=== PATIENT | female | born 2000 | race Caucasian/White ===

== ENCOUNTER 2019-11-28 11:09 | Outpatient (RCR) | payer BC, OTHER, SELFPAY ==
[2019-11-28 11:48] VITALS: BP 104/76; PULSE 116
== END 2020-01-19 09:14 | disposition home or self-care (01) ==
LOC: ANHOBOP 11:09
PROVIDERS: PCP Pediatrics; Visit Provider Obstetrics & Gynecology
DX: O36.8330 Maternal care for abnormalities of the fetal heart rate or rhythm, third trimester, not applicable or unspecified (principal); Z3A.30 30 weeks gestation of pregnancy
CPT/HCPCS: 59025

== ENCOUNTER 2019-11-28 12:07 | Outpatient (RCR) | payer BC, OTHER, SELFPAY ==
[2019-11-28 13:38] LABS: Hematocrit 35.9 % (37.0-47.0); Hemoglobin 12.2 g/dL (12.0-15.0)
[2019-11-28 13:52] LABS: Glucose 1 Hour PP 50gm Dose 93 mg/dL
[2019-11-28 14:32] LABS: HIV 1/2 Ab P24 Ag Result Negative (Negative)
[2019-11-29] MEDS: RHO(D) IMMUNE GLOBULIN 300 MCG SYRINGE IM (13:25)
== END 2020-02-26 23:59 | disposition home or self-care (01) ==
LOC: ANHLAB 12:07
PROVIDERS: PCP Pediatrics; Visit Provider Obstetrics & Gynecology
DX: Z29.13 Encounter for prophylactic Rho(D) immune globulin (principal); Z11.4 Encounter for screening for human immunodeficiency virus [HIV]; O36.0920 Maternal care for other rhesus isoimmunization, second trimester, not applicable or unspecified; Z3A.00 Weeks of gestation of pregnancy not specified
CPT/HCPCS: 36415; 82947; 85014; 85018; 85461; 86703; 90384; 96372; G0432; J2790

== ENCOUNTER 2019-12-30 17:07 | Outpatient (CLI) | payer BC, OTHER, SELFPAY ==
[2019-12-30 17:30] VITALS: BP 135/117; PULSE 114
[2019-12-30 17:46] VITALS: BP 128/74; PULSE 86
[2019-12-30 17:47] LABS: Basophils Percent Auto 0.2 % (0.2-1.2); Eosinophils Absolute Auto 0.1 K/mm3 (0-0.3); Eosinophils Percent Auto 0.8 % (0-4.4); Hematocrit 32.4 % (37.0-47.0); Immature Granulocyte Absolute 0.04 K/mm3 (0.00-0.031); Immature Granulocyte Percent A 0.3 % (0-0.5); Lymphocytes Percent Auto 21.1 % (18.3-44.2); Mean Corpuscular Hemoglobin 32.1 pg (26-34); Mean Corpuscular Volume 94.5 fl (80-100); Mean Platelet Volume 12.3 fl (7.4-10.4); Monocytes Percent Auto 7.7 % (2.6-8.5); Neutrophils Absolute Auto 8.6 K/mm3 (1.3-6.7); Neutrophils Percent Auto 69.9 % (45.5-73.1); Platelet Count Result 237 k/mm3 (150-375); Red Blood Count 3.43 M/mm3 (4.2-5.4); Red Cell Distribution Width 12.3 % (11.5-14.5); White Blood Count 12.3 K/mm3 (4.5-10.0)
[2019-12-30 17:53] LABS: Add Urine Microscopic? YES; Appearance Urine Cloudy (Clear); Bacteria Urine Trace /hpf; Bilirubin Urine Negative (Negative); Blood Urine Negative (Negative); Color Urine Yellow (Yellow); Glucose Urine UA Negative (Negative); Ketones Urine Negative (Negative); Leukocyte Esterase Ur Negative LEU/UL (NEGATIVE); Mucus Urine Rare /lpf; Nitrate Urine Negative (Negative); Protein Urine Negative (Negative); Specific Grav Ur 1.013 (1.001-1.035); Squamous Epithelial Cell Urine Many /hpf (Few); Urobilinogen Urine Negative mg/dL (<2.0); WBC Urine 0-3 /hpf (0-3)
[2019-12-30 18:00] LABS: Alanine Aminotransferase 9 U/L (4-35); Albumin Level 3.5 g/dL (3.5-5.1); Alkaline Phosphatase 155 U/L (38-126); Anion Gap 4 mmol/L (8-16); Aspartate Amino Transferase 20 U/L (14-36); Bilirubin,Total < 0.1 mg/dL (0.2-1.3); Blood Urea Nitrogen 9 mg/dL (7-17); Calcium 9.4 mg/dL (8.4-10.2); Carbon Dioxide 25 mmol/L (22-30); Chloride 104 mmol/L (98-107); Creatinine Urine 50.8 mg/dL; Estimated Glomerular Filt Rate > 60; Glucose 87 mg/dL (65-105); Potassium 3.9 mmol/L (3.4-5.0); Sodium 133 mmol/L (137-145); Total Protein Urine Random 11 mg/dL; Uric Acid 4.6 mg/dL (2.5-7.5)
[2019-12-30 18:01] VITALS: BP 132/78; PULSE 80
[2019-12-30 18:03] VITALS: BP 128/74; PULSE 90
--- NOTE | 2019-12-30 18:15 | PC.NURSE ---
1800- Spoke with Dr. Henry. RENNY Hernandez reviewed. Orders to discharge to home.
== END 2019-12-30 18:05 | disposition home or self-care (01) ==
LOC: ANHOBOP 17:13 → ANHOBPP 17:15
PROVIDERS: PCP Pediatrics; Visit Provider Obstetrics & Gynecology
DX: R51 Headache (principal); M79.89 Other specified soft tissue disorders; O26.899 Other specified pregnancy related conditions, unspecified trimester; Z3A.00 Weeks of gestation of pregnancy not specified
CPT/HCPCS: 36415; 59025; 80053; 81001; 82570; 84156; 84550; 85025; 87086; 87088; 99199

== ENCOUNTER 2020-01-14 16:10 | Inpatient (IN) | payer BC, OTHER, SELFPAY ==
[2020-01-14] VITALS (33 sets, daily range): BP systolic 133–162; BP diastolic 65–117; PULSE 73–106; TEMP 36.6; BMI 29.3
--- NOTE | ~2020-01-14 | US_ITS ---
EXAMINATION: US OB follow up w BPP EXAM DATE: 01/14/2020 15:57 INDICATION: Check amniotic fluid index, estimated weight, growth percent. 3rd trimester. TECHNIQUE: Pelvic obstetrical transabdominal sonogram was performed by a technologist. There are mu ltiple grayscale and Doppler images available for interpretation. There are no earlier studies of th is gestation for comparison. FINDINGS: There is a single fetus identified in vertex presentation with a heart rate of 139 beats pe r minute. The placenta is located in the posterior position. There is no sonographic evidence of ret roplacental hemorrhage identified. The amniotic fluid index is 15.7 centimeters, which is normal. BIOPHYSICAL PROFILE (performed by the technologist) breathing (30 sec sustained breathing in 30 minutes): 2 out of 2 movement (3 gross body movements in 30 minutes): 2 out of 2 tone (one episode of wqtwhdz-zxioeptup-tzsjjmg limb movement): 2 out of 2 Amniotic fluid pocket (2 cm): 2 out of 2 Total score: 8 out of 8 BIOMETRIC DATA: Biparietal diameter (BPD): 9.0cm ----------------> 36 weeks 3 days. Head circumference (HC): 32.7 cm ----------------> 37 weeks 0 days. Abdominal circumference (AC): 33.1 cm ----------> 37 weeks 0 days. Femur length (FL): 7.2 cm --------------------------> 37 weeks 0 days. These measurements are concordant. HC/AC ratio is 0.99 (The 5th -- 95th percentile range is 0.92-1.05. Estimated weight is 3079 g +/- 462 g. This is the 46th percentile when the currently reported clinical gestation age 37 weeks 3 days, clinical estimated date of delivery (JOHN-OPE) 02/01/2020 is u sed. estimated gestational age based on measurements from this exam is 36 weeks 6 days, with an estimated date of delivery (JOHN-AUA) 02/05/2020. IMPRESSION: 1. Single fetus in vertex presentation with heart rate 139 beats per minute. 2. Estimated weight of 3079 grams, 46th percentile using the currently reported clinical gesta tion age of 37 weeks 3 days, JOHN(OPE) 02/05/2020. 3. Normal MELI and BPS. Reviewed, dictated and finalized at location B. IMPRESSION: 1. Single fetus in vertex presentation with heart rate 139 beats per minute. 2. Estimated weight of 3079 grams, 46th percentile using the currently r eported clinical gestation age of 37 weeks 3 days, JOHN(OPE) 02/05/2020. 3. Normal MELI and BPS.
[2020-01-14 14:06] LABS: Basophils Absolute Auto 0.1 K/mm3 (0.0-0.1); Basophils Percent Auto 0.5 % (0.2-1.2); Eosinophils Absolute Auto 0.3 K/mm3 (0-0.3); Eosinophils Percent Auto 2.3 % (0-4.4); Hematocrit 32.3 % (37.0-47.0); Immature Granulocyte Absolute 0.07 K/mm3 (0.00-0.031); Immature Granulocyte Percent A 0.5 % (0-0.5); Lymphocytes Absolute Auto 2.25 K/mm3 (0.9-3.2); Lymphocytes Percent Auto 16.9 % (18.3-44.2); Mean Corpuscular HGB Conc 34.1 g/dl (32-36); Mean Corpuscular Hemoglobin 32.2 pg (26-34); Mean Corpuscular Volume 94.4 fl (80-100); Mean Platelet Volume 12.5 fl (7.4-10.4); Monocytes Absolute Auto 0.8 K/mm3 (0.1-0.6); Monocytes Percent Auto 5.9 % (2.6-8.5); Neutrophils Absolute Auto 9.9 K/mm3 (1.3-6.7); Neutrophils Percent Auto 73.9 % (45.5-73.1); Platelet Count Result 185 k/mm3 (150-375); Red Blood Count 3.42 M/mm3 (4.2-5.4); Red Cell Distribution Width 12.7 % (11.5-14.5); White Blood Count 13.3 K/mm3 (4.5-10.0)
[2020-01-14 14:15] LABS: Creatinine Urine 158.2 mg/dL
[2020-01-14 14:18] LABS: Add Urine Microscopic? YES; Appearance Urine Cloudy (Clear); Bacteria Urine Trace /hpf; Bilirubin Urine Negative (Negative); Blood Urine 3+ (Negative); Color Urine Yellow (Yellow); Glucose Urine UA Negative (Negative); Ketones Urine Negative (Negative); Leukocyte Esterase Ur Trace LEU/UL (NEGATIVE); Mucus Urine Rare /lpf; Nitrate Urine Negative (Negative); Protein Urine 3+ mg/dL (Negative); Specific Grav Ur 1.019 (1.001-1.035); Squamous Epithelial Cell Urine Many /hpf (Few); Transitional Epi Cells Urine Rare /hpf (None Seen); Urobilinogen Urine Negative mg/dL (<2.0); WBC Urine 21-30 /hpf (0-3)
[2020-01-14 14:20] LABS: Alanine Aminotransferase 17 U/L (4-35); Albumin Level 3.3 g/dL (3.5-5.1); Alkaline Phosphatase 207 U/L (38-126); Anion Gap 5 mmol/L (8-16); Aspartate Amino Transferase 26 U/L (14-36); Bilirubin,Total 0.4 mg/dL (0.2-1.3); Blood Urea Nitrogen 9 mg/dL (7-17); Calcium 8.8 mg/dL (8.4-10.2); Carbon Dioxide 23 mmol/L (22-30); Chloride 106 mmol/L (98-107); Estimated Glomerular Filt Rate > 60; Glucose 79 mg/dL (65-105); Potassium 4.1 mmol/L (3.4-5.0); Sodium 134 mmol/L (137-145); Uric Acid 5.3 mg/dL (2.5-7.5)
[2020-01-14 14:23] LABS: Total Protein Urine Random 343 mg/dL
--- NOTE | 2020-01-14 14:59 | PC.NURSE ---
1439--Reported labs to Dr. Henry
--- NOTE | 2020-01-14 16:56 | PC.NURSE ---
1520--US at bedside.
--- NOTE | 2020-01-14 16:57 | PC.NURSE ---
1610--US results and labs reported to Dr. Henry. MIL orders given. Will transfer pt to L&D for induction.
--- NOTE | 2020-01-14 18:53 | LDADM ---
This patient, Augustina Dumont, was admitted to Labor/Delivery/Recovery 105 on 01/14/20 at 16:10. Plans for labor, pain management and were discussed with patient. Patient/family oriented to hospital policies and general routines including ID bracelet, bed and alarms, visiting hours, pain management, procedures, bathroom and other care routines, personal items, smoking policy, room service/diet and guest tray routines, infant security routines, and visiting hours. Patient/Family are encouraged to report perceived risks to care and to ask questions if they do not understand what they are told or what they should do. See OBIX for further documentation.
[2020-01-14 19:44] LABS: HIV 1/2 Ab P24 Ag Result Negative (Negative)
[2020-01-14 19:50] LABS: Amphetamine Screen Urine Negative (Negative); Barbiturate Screen Urine Negative (Negative); Benzodiazepines Screen Urine Negative (Negative); Cannabinoid Screen Urine Positive (Negative); Cocaine Screen Urine Negative (Negative); Methadone Screen Urine Negative (Negative); Opiate Screen Urine Negative (Negative); Phencyclidine Screen Urine Negative (Negative)
[2020-01-14] MEDS: valACYclovir HCL 500 MG TABLET PO (22:17)
[2020-01-15] VITALS (126 sets, daily range): BP systolic 108–167; BP diastolic 69–132; PULSE 67–140; RESP 15–16; TEMP 36.6–38.4; O2SAT 96–100
[2020-01-15] MEDS: LACTATED RINGERS 1,000 ML 125 ML IV CONT ×2 (00:09→09:12)
[2020-01-15] MEDS: OXYTOCIN 30 UNITS/NS 500 ML 30 UNITS/500 ML BAG IV CONT (00:09)
--- NOTE | 2020-01-15 07:03 | WPDANESEPP ---
Anes - Eval Pre Procedure Procedure: labor epidural Date/Time: 01/15/20 07:03 Preop Diagnosis: labor pain Pre Op Diagnosis: Induction of Labor Patient Data Age: 19 Gender: F Height: 5 ft 4 in Weight: 77.5 kg Last Vital Signs Temp 36.9 C 01/15/20 03:30 Pulse 99 01/15/20 07:01 BP 150/94 H 01/15/20 07:01 Allergies Allergy/AdvReac Type Severity Reaction Status Date / Time No Known Allergies Allergy Verified 01/14/20 19:20 Home Medications Medication Instructions Recorded Confirmed Type vit no.[id number] 1 tablet PO DAILY 12/30/19 01/14/20 History [Classic ] valacyclovir 500 mg PO DAILY 12/30/19 01/14/20 History Laboratory Tests 01/14/20 01/14/20 01/14/20 13:59 13:59 13:59 WBC 13.3 K/mm3 H K/mm3 (4.5-10.0) RBC 3.42 M/mm3 L M/mm3 (4.2-5.4) Hgb 11.0 g/dL L g/dL (12.0-15.0) Hct 32.3 % L % (37.0-47.0) MCV 94.4 fl fl (80-100) MCH 32.2 pg pg (26-34) MCHC 34.1 g/dl g/dl (32-36) RDW 12.7 % % (11.5-14.5) Plt Count 185 k/mm3 k/mm3 (150-375) MPV 12.5 fl H fl (7.4-10.4) Immature Gran % (Auto) 0.5 % % (0-0.5) Neut % (Auto) 73.9 % H % (45.5-73.1) Lymph % (Auto) 16.9 % L % (18.3-44.2) Towns % (Auto) 5.9 % % (2.6-8.5) Eos % (Auto) 2.3 % % (0-4.4) Baso % (Auto) 0.5 % % (0.2-1.2) Lymph # (Auto) 2.25 K/mm3 K/mm3 (0.9-3.2) Towns # (Auto) 0.8 K/mm3 H K/mm3 (0.1-0.6) Eos # (Auto) 0.3 K/mm3 K/mm3 (0-0.3) Baso # (Auto) 0.1 K/mm3 K/mm3 (0.0-0.1) Abs Immat Gran (auto) 0.07 K/mm3 H K/mm3 (0.00-0.031) Absolute Neuts (auto) 9.9 K/mm3 H K/mm3 (1.3-6.7) Absolute Nucleated RBC 0.0 K/mm3 K/mm3 (0.0-0.012) Nucleated RBC % 0.0 % % (0.0-0.2) Sodium Potassium Chloride Carbon Dioxide Anion Gap BUN Creatinine Estim Creat Clear Calc Estimated GFR Glucose Uric Acid Calcium Total Bilirubin AST ALT Alkaline Phosphatase Total Protein Albumin Urine Color Yellow (Yellow) Urine Appearance Cloudy H (Clear) Urine pH 6.0 (5.0-9.0) Ur Specific [place] 1.019 (1.001-1.035) Urine Protein 3+ mg/dL H mg/dL (Negative) Urine Glucose (UA) Negative mg/dL mg/dL (Negative) Urine Ketones Negative mg/dL mg/dL (Negative) Ur Blood (Man) 3+ H (Negative) Urine Nitrate Negative (Negative) Urine Bilirubin Negative (Negative) Urine Urobilinogen Negative mg/dL mg/dL (<2.0) Ur Leukocyte Esterase Trace MARIA ELENA/UL H MARIA ELENA/UL (NEGATIVE) Urine RBC 6-10 /hpf H /hpf (0-2) Urine WBC 21-30 /hpf H /hpf (0-3) Ur Squamous Epith Cells Many /hpf H /hpf (Few) Ur Transition Epith Cell Rare /hpf /hpf (None Seen) Urine Bacteria Trace /hpf /hpf Urine Mucus Rare /lpf /lpf U Random Total Protein 343 mg/dL mg/dL Urine Creatinine 158.2 mg/dL mg/dL Urine Opiates Screen Urine Methadone Screen Ur Barbiturates Screen Ur Phencyclidine Scrn Ur Amphetamine Screen U Benzodiazepines Scrn Urine Cocaine Screen U Cannabinoids Screen RPR HIV 1&2 Ab/P24 Ag 4thGn Blood Type Antibody Screen Antibody Identification Antigen Identification VIKKI, IgG Interpret VIKKI, Poly Interpret VIKKI, Complement Interp 01/14/20 01/14/20 01/14/20 13:59 13:59
[2020-01-15] MEDS: ONDANSETRON INJ 4 MG/2 ML VIAL IV PUSH (08:00)
[2020-01-15] MEDS: valACYclovir HCL 500 MG TABLET PO ×2 (09:12→23:00)
[2020-01-15 09:37] LABS: Rapid Plasma Reagin Non-Reactive (NonReactive)
[2020-01-15] MEDS: FAMOTIDINE 20 MG/2 ML VIAL IV PUSH (11:35)
--- NOTE | 2020-01-15 12:33 | P.PCNOB_ITS ---
OB - Delivery Note Procedure events: Induced HTN Route of delivery: Episiotomy description: None Laceration description: None Specimen: Yes Estimated blood loss (mL): 300 Anesthesia type: Epidural Disposition: floor Narrative: Patient prepped and draped usual manner for this procedure. Maternal expulsive efforts delivered vertex over intact perineum and the rest of baby was still without difficulty as well. Cord is clamped and cut and placenta delivered spontaneously. Cervix vagina vulva were inspected with no significant lacerations or tears. Uterus was well contracted with minimal bleeding. This point seizure was considered terminated with immediate condition of both mother and baby excellent [place] Baby Weeks of gestation at delivery: 37 gender: Female Weight (pounds): 6 Weight (ounces): 1 score one minute: 8 score five minutes: 9
--- NOTE | 2020-01-15 12:44 | WPDHPUPDATE1 ---
History and Physical Update Update Date/Time: 01/15/20 12:44 History and Physical has been reviewed, including an updated exam of the patient. There are NO changes in the patient's condition. Risks, benefits, and alternatives have been discussed and questions answered. Patient agrees to proceed with procedure.
--- NOTE | 2020-01-15 12:44 | WPDOBADMIT ---
Obstetrics - Admit Note Admission Note: record reviewed. No pertinent additions to the history and/or any subsequent changes in the physical findings that are not consistent with the expected course of the were found. Additions to the history and/or subsequent changes in the physical findings follow. None.
[2020-01-15] MEDS: WITCH HAZEL 40 PADS 1 PAD TOPICAL ×2 (13:32→14:28)
[2020-01-15] MEDS: BENZOCAINE 20% AER SPR (*SP) 56 GM CAN 1 SPRAY TOPICAL ×2 (13:32→14:28)
[2020-01-15] MEDS: LABETALOL HCL 100 MG TABLET PO ×2 (13:32→23:00)
[2020-01-15] MEDS: IBUPROFEN 600 MG TABLET PO ×2 (13:32→19:40)
[2020-01-15] MEDS: ceFAZolin 2 GM/D5W 50 ML 2 GM/50 ML BAG IVPB (13:52)
[2020-01-15] MEDS: OXYTOCIN 30 UNITS/NS 500 ML 30 UNITS/500 ML BAG 125 UNITS IV CONT (14:28)
--- NOTE | 2020-01-15 19:49 | PC.NURSE ---
1530 Pt admitted to room 285 per wheelchair from labor and delivery after vaginal delivery of viable female today q at [address] Henry. Mother is a and is desiring to breast feed, but is bottle feeding for now pending Lab test results. FOB present. Couple oriented to room, staffing and procedures. Admission folder reviewed with them. Pt's VSS and assessment WNL. pt is in respiratory isolation pending lab test results.
[2020-01-16 05:56] LABS: Hematocrit 24.2 % (37.0-47.0); Hemoglobin 8.1 g/dL (12.0-15.0)
--- NOTE | 2020-01-16 07:42 | PM.OBDSVD ---
DS: Admitting Diagnosis Admitting Diagnosis Admitting Diagnosis: Induction of Labor OB - DS: Summary OB Procedures : None OB Procedures Intrapartum: Spontaneous Vag Delivery OB Procedures: : None Time Spent with Patient Time attestation: Total time spent providing and/or coordinating discharge services: DS: Data Data Completed and Pending Pending studies at discharge: Pending at discharge 01/15/20 12:27 Surgical [PTH] Routine Labs on day of discharge: Labs from last 24 hours 01/16/20 01/15/20 01/14/20 04:40 14:20 18:45 Hgb 8.1 L Hct 24.2 L RPR Non-reactive SARS-CoV-2 RNA (RT-PCR) Pending Discharge Plan Discharge Discharging Clinician: Zay Henry Patient Disposition: Home, Self-Care Activity: as tolerated Diet: as tolerated Patient Instructions: How to Stop Smoking (DC), Antibiotic Form Stand Alone Forms: General Discharge Information Follow-up/Referrals: Zay Henry MD [Physician] - 1 Week Discharge Medications: New ibuprofen 600 mg Tablet 600 mg PO Q6H PRN (Reason: Cramping) Qty: 30 RF: 0 sulfamethoxazole-trimethoprim 800-160 mg Tablet 1 tab PO Q12HR Qty: 14 RF: 0 labetalol 100 mg Tablet 100 mg PO Q12HR Qty: 60 RF: 0 Continued Classic 28 mg iron- 800 mcg Tablet 1 tablet PO DAILY RF: 0 Discontinued valacyclovir 500 mg Tablet 500 mg PO DAILY RF: 0 Date of admission: 01/14/20 16:10 Primary Care Provider: Chriss Washington Admitting Provider: Zay Herny Attending physician on admission: Zay Henry Condition: Stable
[2020-01-16 08:45] VITALS: BP 135/70; PULSE 80; RESP 16; TEMP 37.4
[2020-01-16 09:00] VITALS: PULSE 80
[2020-01-16] MEDS: LABETALOL HCL 100 MG TABLET PO (09:00)
[2020-01-16] MEDS: IBUPROFEN 600 MG TABLET PO ×2 (09:00→17:58)
[2020-01-16] MEDS: POLYSACCHARIDE IRON COMPLEX 150 MG CAPSULE PO ×2 (09:00→17:57)
--- NOTE | 2020-01-16 09:23 | WPDANLDPN2 ---
Anes-Prog Note L&D Date/Time: 01/16/20 09:23 Comfortable throughout: labor and delivery Neuraxial method: epidural Epidural/Spinal procedure site: clean & non-tender Neuro status: Neuro function grossly intact. Cardiovascular status: normal Respiratory status: normal Airway patency: baseline Mental status: baseline Post-Op hydration status: normal Vital Signs: Last Vital Signs Temp 37.2 C 01/15/20 19:20 Pulse 86 01/15/20 23:00 Resp 15 01/15/20 19:20 BP 138/90 01/15/20 19:20 Pulse Ox 98 01/15/20 11:26 Pain score (VAS): 1 Post-procedural complaints: none Patient feedback: Patient satisfied with anesthetic care.
--- NOTE | 2020-01-16 13:24 | PCCCNOTE ---
Addendum entered by TERRANCE [place] 01/16/20 16:25: Received call from Shima Davis [facility] credit investigator that pt. and baby are approved to discharge. Shima will follow up with pt. and baby this evening at there home. Pt. and nursing aware. Original Note: Care Coordination Consult Met with pt. today regarding concerns of maternal drug use. Pt. reports this is her first child. FOB is Roberto and this is his 3rd child. Pt. reports that she has supports including Roberto, her mother, and other family members. Pt. has all necessary belongings at home including a crib, car seat, clothing, diapers and bottles. Pt. was hoping to breast feed however has transitioned to bottle feeding. Pt. is current with [facility] services and will add the baby at discharge. resources was provided to pt. CC spoke with pt. regarding drug use, pt. is aware she tested positive for THC. Baby girl, Lolita urinalysis was completed which is negative for all substances, meconium is pending. 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 Pt. reports this was recreational. Pt. denies that she uses any other substances currently other than marijuana. Pt. reports Roberto does not use any substances. [facility] was contacted and a report was generated with [facility] family support worker Shima Valencia investigating. Pt. is aware of investigation and states Roberto is currently completing a urinalysis test for [facility]. CC contacted Shima Valencia @ [phone] [facility]. CC will fax results of meconium test once available to [phone]. Awaiting determination from [facility].
[2020-01-16] MEDS: MULTIVIT/MIN/PREN/FOL AC/IRON TABLET 1 TAB PO (13:35)
[2020-01-16] MEDS: valACYclovir HCL 500 MG TABLET PO (13:35)
[2020-01-16 14:17] LABS: SARS-CoV-2 RNA PCR Negative
[2020-01-16] MEDS: DOCUSATE SODIUM 100 MG CAPSULE PO (17:57)
[2020-01-16] MEDS: MEASLES,MUMPS,RUBELLA VACCINE 0.5 ML VIAL SUB-Q (18:01)
[2020-01-16] MEDS: TETANUS,DIPHTHERIA,AC PERTUSSIS ADULT (0.5 ML) BOOSTRIX IM (18:02)
--- NOTE | 2020-01-16 18:55 | PC.NURSE ---
Patient instructed on viewing the discharge video Mother & Baby Care, The First Two Weeks . Patient was given the opportunity and encouraged to ask questions. Patient verbalized understanding of information shared and has been given the mother/baby guide for home reference.
[2020-01-19 08:34] VITALS: BP 129/88; RESP 85; O2SAT 99
== END 2020-01-16 19:35 | disposition home or self-care (01) | DRG 807 ==
LOC: ANHOBOP 17:13 → ANHOBPP 17:13 → ANHLDR 18:30 → ANHOB2 01-15 15:45
PROVIDERS: Admitting Provider Obstetrics & Gynecology; PCP Pediatrics; Visit Provider Obstetrics & Gynecology
DX: O13.4 Gestational [pregnancy-induced] hypertension without significant proteinuria, complicating childbirth (principal); Z37.0 Single live birth; O99.334 Smoking (tobacco) complicating childbirth; F17.200 Nicotine dependence, unspecified, uncomplicated; Z3A.37 37 weeks gestation of pregnancy; Z23 Encounter for immunization
CPT/HCPCS: 36415; 59025; 76816; 76819; 80053; 80307; 81001; 82570; 84156; 84550; 85014; 85018; 85025; 86592; 86703; 86850; 86880; 86900; 86901; 86902; 87086; 87088; 87635; 88307; 90471; 90686; 90710; 90715; A9270; C9803; G0008; G0432; J0690; J2405; J2590; J2795; J7120; U0003

== ENCOUNTER 2021-08-15 09:46 | Outpatient (CLI) | payer BC, OTHER, SELFPAY ==
[2021-08-15 10:11] LABS: Basophils Percent Auto 0.3 % (0.2-1.2); Eosinophils Absolute Auto 0.1 K/mm3 (0-0.3); Eosinophils Percent Auto 1.1 % (0-4.4); Hematocrit 40.6 % (37.0-47.0); Hemoglobin 13.8 g/dL (12.0-15.0); Immature Granulocyte Absolute 0.03 K/mm3 (0.00-0.031); Immature Granulocyte Percent A 0.3 % (0-0.5); Lymphocytes Absolute Auto 3.25 K/mm3 (0.9-3.2); Lymphocytes Percent Auto 27.7 % (18.3-44.2); Mean Corpuscular Hemoglobin 30.8 pg (26-34); Mean Corpuscular Volume 90.6 fl (80-100); Mean Platelet Volume 10.4 fl (7.4-10.4); Monocytes Absolute Auto 0.5 K/mm3 (0.1-0.6); Monocytes Percent Auto 4.2 % (2.6-8.5); Neutrophils Absolute Auto 7.8 K/mm3 (1.3-6.7); Neutrophils Percent Auto 66.4 % (45.5-73.1); Platelet Count Result 270 k/mm3 (150-375); Red Blood Count 4.48 M/mm3 (4.2-5.4); Red Cell Distribution Width 12.1 % (11.5-14.5); White Blood Count 11.7 K/mm3 (4.5-10.0)
[2021-08-15 11:07] LABS: HIV 1/2 Ab P24 Ag Result Negative (Negative)
[2021-08-15 11:13] LABS: Hepatitis B Surface Antigen Negative (Negative); Rubella IgG Antibody 8.5 IU/ML
[2021-08-16 11:22] LABS: Rapid Plasma Reagin Non-Reactive (NonReactive)
[2021-08-17 08:02] LABS: CMV IgG Antibody <0.60 U/mL (<0.60)
== END 2021-08-15 09:47 | disposition home or self-care (01) ==
LOC: ANHLAB 09:50
PROVIDERS: Visit Provider Obstetrics & Gynecology
DX: N94.89 Other specified conditions associated with female genital organs and menstrual cycle (principal)
CPT/HCPCS: 36415; 84702; 85025; 86592; 86644; 86703; 86747; 86762; 86787; 86850; 86900; 86901; 87086; 87340; G0432

== ENCOUNTER 2021-12-12 13:02 | Outpatient (CLI) | payer BC, OTHER, SELFPAY ==
[2021-12-12 13:37] VITALS: BP 116/68; PULSE 79
[2021-12-12 13:46] VITALS: BP 130/89; PULSE 97
[2021-12-12 14:01] VITALS: BP 117/63; PULSE 87
--- NOTE | 2021-12-12 14:15 | PC.NURSE ---
Pt remains on unit to do 1hr glucose test.
[2021-12-12 15:38] LABS: Basophils Percent Auto 0.2 % (0.2-1.2); Eosinophils Absolute Auto 0.1 K/mm3 (0-0.3); Eosinophils Percent Auto 0.5 % (0-4.4); Hematocrit 34.7 % (37.0-47.0); Hemoglobin 11.6 g/dL (12.0-15.0); Immature Granulocyte Absolute 0.05 K/mm3 (0.00-0.031); Immature Granulocyte Percent A 0.4 % (0-0.5); Lymphocytes Absolute Auto 2.42 K/mm3 (0.9-3.2); Lymphocytes Percent Auto 18.7 % (18.3-44.2); Mean Corpuscular HGB Conc 33.4 g/dl (32-36); Mean Corpuscular Hemoglobin 31.9 pg (26-34); Mean Corpuscular Volume 95.3 fl (80-100); Mean Platelet Volume 10.5 fl (7.4-10.4); Monocytes Absolute Auto 0.7 K/mm3 (0.1-0.6); Monocytes Percent Auto 5.1 % (2.6-8.5); Neutrophils Absolute Auto 9.7 K/mm3 (1.3-6.7); Neutrophils Percent Auto 75.1 % (45.5-73.1); Platelet Count Result 265 k/mm3 (150-375); Red Blood Count 3.64 M/mm3 (4.2-5.4); Red Cell Distribution Width 12.9 % (11.5-14.5)
[2021-12-12 15:54] LABS: Glucose 1 Hour PP 50gm Dose 123 mg/dL
[2021-12-12 16:33] LABS: HIV 1/2 Ab P24 Ag Result Negative (Negative)
== END 2021-12-12 15:30 | disposition home or self-care (01) ==
LOC: ANHOBOP 13:06 → ANHOBPP 13:07
PROVIDERS: Visit Provider Obstetrics & Gynecology
DX: Z34.90 Encounter for supervision of normal pregnancy, unspecified, unspecified trimester (principal); Z3A.00 Weeks of gestation of pregnancy not specified
CPT/HCPCS: 36415; 59025; 82947; 84112; 85025; 85461; 86703; 90384; 99199; G0432; J2790

== ENCOUNTER 2021-12-13 12:19 | Outpatient (CLI) | payer BC, OTHER, SELFPAY ==
[2021-12-13] MEDS: RHO(D) IMMUNE GLOBULIN 300 MCG/2 ML SYRINGE IM (12:58)
== END 2021-12-13 12:20 | disposition home or self-care (01) ==
LOC: ANHOBOP 12:37
PROVIDERS: Visit Provider Obstetrics & Gynecology
DX: O36.0990 Maternal care for other rhesus isoimmunization, unspecified trimester, not applicable or unspecified (principal); Z3A.00 Weeks of gestation of pregnancy not specified
CPT/HCPCS: 90384; 96372; J2790

== ENCOUNTER 2022-01-16 14:34 | Outpatient (CLI) | payer BC, OTHER, SELFPAY | END 2022-01-16 14:35 | disposition home or self-care (01) | LOC: ANHLAB 14:37 | PROVIDERS: Visit Provider Obstetrics & Gynecology | DX: R19.5 Other fecal abnormalities (principal) | CPT/HCPCS: 87177; 87209 ==

== ENCOUNTER 2022-02-14 11:23 | Outpatient (RCR) | payer BC, OTHER, SELFPAY ==
[2022-01-31 12:21] VITALS: BP 115/67; PULSE 92
[2022-02-03 12:09] VITALS: BP 116/74; PULSE 97
[2022-02-07 12:30] VITALS: BP 120/77; PULSE 111
[2022-02-10 09:56] VITALS: BP 122/76; PULSE 106
--- NOTE | ~2022-02-14 | US_ITS ---
EXAMINATION: US OB BPP wo non-stress DATE: 02/14/2022 13:08 CDT INDICATION: IUGR. TECHNIQUE: Real-time transabdominal obstetric ultrasound. FINDINGS: Comparison to ultrasound dated 02/13/2022 There is a single living fetus. heart rate 137 BPM. cardiac activity and movement is noted with a heart rate of 137 beats per minute. Biophysical profile: breathin of 2 movement: 2 of 2 tone: 2 of 2 Amniotic flud pocket: 2 of 2 Total score: 8 of 8 IMPRESSION: 1. Single living intrauterine with heart rate of 137 BPM. 2: Total biophysical profile score of 8/8. Reviewed, dictated and finalized at location B.
--- NOTE | ~2022-02-14 | US_ITS ---
EXAMINATION: US OB BPP wo non-stress DATE: 01/31/2022 12:54 INDICATION: IUGR during third trimester TECHNIQUE: Real-time pelvic ultrasound was performed. The interpreting radiologist was not present fo r the study. COMPARISON: None. FINDINGS: There is a single living fetus in vertex presentation. The placenta is anterior. heart rate is 185 beats per minute (bpm). Biophysical profile performed by the technologist: breathing (30 sec sustained breathing in 30 minutes): 2 out of 2 movement (3 gross body movements in 30 minutes): 2 out of 2 tone (one episode of stqtahg-twimaarub-hostzza limb movement): 2 out of 2 Amniotic fluid pocket (2 cm): 2 out of 2 Total score: 8 out of 8 IMPRESSION: 1. Single living fetus in vertex presentation. 2. Biophysical profile 8 out of 8. Reviewed, dictated and finalized at location A.
--- NOTE | ~2022-02-14 | US_ITS ---
EXAMINATION: US OB BPP wo non-stress DATE: 02/07/2022 12:37 INDICATION: Intrauterine growth restriction. Third trimester. TECHNIQUE: Real-time pelvic ultrasound was performed. COMPARISON: Ultrasound 01/31/2022 FINDINGS: There is a single living fetus in vertex presentation. The placenta is anterior. heart rate is 143 beats per minute (bpm). The amniotic fluid volume is subjectively normal. Biophysical profile performed by the technologist: breathing (30 sec sustained breathing in 30 minutes): 2 out of 2 movement (3 gross body movements in 30 minutes): 2 out of 2 tone (one episode of iloqtiz-cojtmuomf-ldhmquh limb movement): 2 out of 2 Amniotic fluid pocket (2 cm): 2 out of 2 Total score: 8 out of 8 IMPRESSION: 1. Single living fetus in vertex presentation. 2. Biophysical profile 8 out of 8. Reviewed, dictated and finalized at location B.
[2022-02-14 13:09] VITALS: BP 131/75; PULSE 103
== END 2022-03-24 07:40 | disposition home or self-care (01) ==
LOC: ANHOBOP 11:23
PROVIDERS: Visit Provider Obstetrics & Gynecology
DX: O36.5930 Maternal care for other known or suspected poor fetal growth, third trimester, not applicable or unspecified (principal); Z3A.36 36 weeks gestation of pregnancy; Z3A.37 37 weeks gestation of pregnancy
CPT/HCPCS: 59025; 76819

== ENCOUNTER 2022-02-16 04:41 | Inpatient (IN) | payer BC, OTHER, SELFPAY ==
[2022-02-16] VITALS (59 sets, daily range): BP systolic 110–144; BP diastolic 58–104; PULSE 62–154; RESP 16; TEMP 36.3–36.8; O2SAT 97–100; BMI 32.7
--- OUTSIDE RECORDS SUMMARY | 2022-02-16 04:45 | XMS_ITS ---
:1999 Author Care Team Providers Name Role Phone Zay Henry Primary Care Provider Unavailable Allergies Code Code System Name Reaction Severity Status Onset NKDA ? Medications Name Status Start Date Stop Date ? ? acetaminophen 300 mg-codeine 30 mg tablet Completed ? 09/02/2019 amoxicillin 875 mg-potassium clavulanate 125 mg tablet Active ? Not available TAKE 1 TABLET BY MOUTH EVERY 12 HOURS FOR 10 DAYS azithromycin 250 mg tablet Completed ? 05/20 TK 4 TS PO ONE TIME azithromycin 500 mg tablet Completed ? 09/01 [place] Fe 1.5/30 (28) 1.5 mg-30 mcg (21)/75 mg (7) tablet Compl eted ? 10/19/2020 Take 1 tablet every day by oral route. ceftriaxone 250 mg solution for injection Completed ? 09/02/2019 fluconazole 150 mg tablet Active ? Not av ailable TAKE 1 TABLET BY MOUTH 1 TIME. REPEAT D OSE IN 3 DAYS IF SYMPTOMS ARE STILL PRESENT fluconazole 200 mg tablet Completed ? 2019 fluticasone propionate 50 mcg/actuation nasal Completed ? 10/19/2020 spray,suspension ibuprofen 600 mg tablet Completed ? 10/20/19 21 TK 1 T PO Q 6 H PRF CRAMPING labetalol 100 mg tablet Completed ? 10/20/19 21 TK 1 T PO Q 12 H Lexapro 10 mg tablet Completed ? 10/19/2020 Take 1/2 tablet for 7 days, then take O NE tablet dailyNo alcohol, driving or with sedating medicationsNotify if any change in mood or behavior metronidazole 0.75 % (37.5 mg/5 gram) vaginal Completed ? 09/02/2019 gel metronidazole 500 mg tablet Completed ? 09/22 Miya 0.25 mg-35 mcg tablet Active ? Not a
--- OUTSIDE RECORDS SUMMARY | 2022-02-16 04:45 | XMS_ITS ---
:1999 Author Allergies Code Code System Name Reaction Severity Status Onset NKDA ? Medications Name Status Start Date Stop Date ? ? amoxicillin 875 mg-potassium clavulanate 125 mg tablet Completed ? 06/14/2020 TAKE 1 TABLET BY MOUTH EVERY 12 HOURS FOR 10 DAYS azithromycin 250 mg tablet Completed ? 05/20 TK 4 TS PO ONE TIME [place] Fe 1.5/30 (28) 1.5 mg-30 mcg (21)/75 mg (7) Active ? Not available tablet escitalopram 10 mg tablet Active ? Not av ailable fluconazole 150 mg tablet Completed ? 2020 TAKE 1 TABLET BY MOUTH 1 TIME. REPEAT D OSE IN 3 DAYS IF SYMPTOMS ARE STILL PRESENT fluticasone propionate 50 mcg/actuation nasal Active ? Not available spray,suspension ibuprofen 600 mg tablet Active ? Not avai lable TK 1 T PO Q 6 H PRF CRAMPING labetalol 100 mg tablet Active ? Not avai lable TK 1 T PO Q 12 H metronidazole 500 mg tablet Active ? Not available TK 1 T PO BID Miya 0.25 mg-35 mcg tablet Active ? Not a vailable TAKE 1 TABLET BY MOUTH EVERY DAY sulfamethoxazole 800 mg-trimethoprim 160 mg tablet Completed ? 04/02/2020 TK 1 T PO Q 12 H valacyclovir 500 mg tablet Active ? Not a vailable Zyrtec-D 5 mg-120 mg tablet,extended release Active ? Not available 1 Q 12 H Problems Name Status Onset Date Source ? Verruca Plantaris Active 04/07/2020 ? Procedures None recorded. Results Lab Results None recorded. Past Encounte
--- OUTSIDE RECORDS SUMMARY | 2022-02-16 04:45 | XMS_ITS ---
:1999 Author Care Team Providers Name Role Phone ENDER CARRASCO MD Primary Care Provider [phone] Allergies Code Code System Name Reaction Severity Status Onset NKDA ? Medications Name Status Start Date Stop Date ? ? acetaminophen 300 mg-codeine 30 mg tablet Completed ? 09/02/2019 amoxicillin 875 mg-potassium clavulanate 125 mg tablet Active ? Not available TAKE 1 TABLET BY MOUTH EVERY 12 HOURS FOR 10 DAYS azithromycin 250 mg tablet Completed ? 09/01 TK 4 TS PO ONE TIME azithromycin 500 mg tablet Completed ? 09/01 [place] Fe 1.5/30 (28) 1.5 mg-30 mcg (21)/75 mg (7) Completed ? 09/02/2019 tablet ceftriaxone 250 mg solution for injection Completed ? 09/02/2019 escitalopram 10 mg tablet Active ? Not av ailable fluconazole 150 mg tablet Active ? Not av ailable TAKE 1 TABLET BY MOUTH 1 TIME. REPEAT D OSE IN 3 DAYS IF SYMPTOMS ARE STILL PRESENT fluconazole 200 mg tablet Completed ? 2019 fluticasone propionate 50 mcg/actuation nasal Active ? Not available spray,suspension ibuprofen 600 mg tablet Completed ? 02/09/20 labetalol 100 mg tablet Completed ? 02/09/20 metronidazole 0.75 % (37.5 mg/5 gram) vaginal gel Completed ? 09/02/2019 metronidazole 500 mg tablet Completed ? 08/21 Miya 0.25 mg-35 mcg tablet Active ? Not a vailable TAKE 1 TABLET BY MOUTH EVERY DAY Active ? Not available promethazine 25 mg tablet Completed ? 2019 sulfamethoxazole 800 mg-trimethoprim 160 mg tablet Completed ? 02/09/2020 valacyclovir 500 mg tablet Active ?
--- NOTE | 2022-02-16 05:00 | LDADM ---
This patient, Augustina Dumont, was admitted to Labor/Delivery/Recovery 103 on 02/16/22 at 04:41. Plans for labor, pain management and were discussed with patient. Patient/family oriented to hospital policies and general routines including ID bracelet, bed and alarms, visiting hours, pain management, procedures, bathroom and other care routines, personal items, smoking policy, room service/diet and guest tray routines, infant security routines, and visiting hours. Patient/Family are encouraged to report perceived risks to care and to ask questions if they do not understand what they are told or what they should do. See OBIX for further documentation.
[2022-02-16 05:25] LABS: Basophils Percent Auto 0.3 % (0.2-1.2); Eosinophils Absolute Auto 0.1 K/mm3 (0-0.3); Eosinophils Percent Auto 0.4 % (0-4.4); Hematocrit 32.1 % (37.0-47.0); Hemoglobin 10.7 g/dL (12.0-15.0); Immature Granulocyte Absolute 0.06 K/mm3 (0.00-0.031); Immature Granulocyte Percent A 0.5 % (0-0.5); Lymphocytes Absolute Auto 2.88 K/mm3 (0.9-3.2); Lymphocytes Percent Auto 24.2 % (18.3-44.2); Mean Corpuscular HGB Conc 33.3 g/dl (32-36); Mean Corpuscular Hemoglobin 30.5 pg (26-34); Mean Corpuscular Volume 91.5 fl (80-100); Mean Platelet Volume 11.4 fl (7.4-10.4); Monocytes Absolute Auto 0.8 K/mm3 (0.1-0.6); Monocytes Percent Auto 6.6 % (2.6-8.5); Neutrophils Absolute Auto 8.1 K/mm3 (1.3-6.7); Platelet Count Result 234 k/mm3 (150-375); Red Blood Count 3.51 M/mm3 (4.2-5.4); Red Cell Distribution Width 14.6 % (11.5-14.5); White Blood Count 11.9 K/mm3 (4.5-10.0)
[2022-02-16] MEDS: ONDANSETRON INJ 4 MG/2 ML VIAL IV PUSH (05:29)
[2022-02-16] MEDS: OXYTOCIN 30 UNITS/NS 500 ML 30 UNITS/500 ML BAG IV CONT (06:16)
[2022-02-16] MEDS: LACTATED RINGERS 1,000 ML 125 ML IV CONT ×2 (06:17→08:46)
[2022-02-16] MEDS: AMPICILLIN 1 GM/NS 50 ML 1 GM/50 ML BAG IVPB ×3 (06:17→10:11)
--- NOTE | 2022-02-16 07:27 | PC.NURSE ---
0705--Additional 1gm dose of Ampicilllin given to equal 2gm dose for start of GBS protocol.
[2022-02-16] MEDS: fentaNYL CITRATE INJ (*CRX) 100 MCG/2 ML VIAL 50 MCG IV PUSH (08:42)
--- NOTE | 2022-02-16 08:46 | WPDANESEPP ---
Anes - Eval Pre Procedure Procedure: labor epidural Date/Time: 02/16/22 08:46 Surgeon: patrick Preop Diagnosis: pain during labor Pre Op Diagnosis: IOL Patient Data Age: 21 Gender: F Height: 1.63 m Weight: 190 kg Last Vital Signs Temp 36.6 C 02/16/22 05:17 Pulse 76 02/16/22 08:00 BP 129/84 02/16/22 08:00 O2 Del Method Room Air 02/16/22 04:58 Allergies Allergy/AdvReac Type Severity Reaction Status Date / Time No Known Allergies Allergy Verified 02/16/22 05:15 Home Medications Medication Instructions Recorded Confirmed Type vits no.126-ferrous fum 1 tablet PO DAILY 12/30/19 02/16/22 History 28 mg iron-folic acid 800 mcg tablet (Classic ) aspirin 81 mg tablet,delayed 81 mg PO DAILY 09/13/21 02/16/22 History release (Adult Aspirin Regimen) acyclovir 400 mg tablet 400 mg PO BID #60 tabs 12/20/21 02/16/22 Rx ondansetron HCl 4 mg tablet 4 mg PO Q6H #30 tabs 12/28/21 02/16/22 Rx fluconazole 150 mg tablet 150 mg PO Q72H #2 tabs 02/13/22 02/16/22 Rx (Diflucan) Laboratory Tests 02/16/22 02/16/22 02/16/22 05:18 05:18 05:18 WBC 11.9 K/mm3 H K/mm3 (4.5-10.0) RBC 3.51 M/mm3 L M/mm3 (4.2-5.4) Hgb 10.7 g/dL L g/dL (12.0-15.0) Hct 32.1 % L % (37.0-47.0) MCV 91.5 fl fl (80-100) MCH 30.5 pg pg (26-34) MCHC 33.3 g/dl g/dl (32-36) RDW 14.6 % H % (11.5-14.5) Plt Count 234 k/mm3 k/mm3 (150-375) MPV 11.4 fl H fl (7.4-10.4) Immature Gran % (Auto) 0.5 % % (0-0.5) Neut % (Auto) 68.0 % % (45.5-73.1) Lymph % (Auto) 24.2 % % (18.3-44.2) Freestone % (Auto) 6.6 % % (2.6-8.5) Eos % (Auto) 0.4 % % (0-4.4) Baso % (Auto) 0.3 % % (0.2-1.2) Lymph # (Auto) 2.88 K/mm3 K/mm3 (0.9-3.2) Freestone # (Auto) 0.8 K/mm3 H K/mm3 (0.1-0.6) Eos # (Auto) 0.1 K/mm3 K/mm3 (0-0.3) Baso # (Auto) 0.0 K/mm3 K/mm3 (0.0-0.1) Abs Immat Gran (auto) 0.06 K/mm3 H K/mm3 (0.00-0.031) Absolute Neuts (auto) 8.1 K/mm3 H K/mm3 (1.3-6.7) Absolute Nucleated RBC 0.0 K/mm3 K/mm3 (0.0-0.012) Nucleated RBC % 0.0 % % (0.0-0.2) RPR Pending Blood Type O Negative Antibody Screen Positive Antibody Identification Passive Due to RH Imm Glob Antigen Identification Cancelled VIKKI, IgG Interpret Not Performed VIKKI, Poly Interpret Negative VIKKI, Complement Interp Not Performed Patient hx anesthesia problems: none Family hx anesthesia problems: none Results Review: All pre-operative results and documents have been reviewed as part of the pre-operative evaluation. [facility] Past Medical History Medical History (Updated 01/16/22 @ 10:20 by Rody Dickinson MD) Anxiety HSV-2 (herpes simplex virus 2) infection Suppression of menstruation Surgical History Surgical History History of appendectomy (~2010) Family History Family History (Updated 02/02/22 @ 14:41 by Triny Salamanca RN) Mother No problems noted. Father Diverticulitis Grandparent Lung cancer Grandparent Breast cancer Social History Social History (Updated 08/15/21 @ 08:58 by ZEHRA Raya) Years smoked: 1.5 Smoking status: Current every day smoker Tobacco type: e-cigarettes/vaping Second hand tobacco smoke exposure: No Alcohol intake: never Substance use: former Substance use type: marijuana Last use: 05/2021 Additional living arrangements comments: single Additional occupation/education comments: stay at home mom Gender identity (if verbalized by the patient): Female Sexual Orientation (if Verbalized by the Patient): Straight or Heterosexual Spiritual care concerns: No
[2022-02-16] MEDS: FAMOTIDINE 20 MG/2 ML VIAL IV PUSH (09:23)
--- NOTE | 2022-02-16 11:13 | WPDHPUPDATE1 ---
History and Physical Update Update Date/Time: 02/16/22 11:13 History and Physical has been reviewed, including an updated exam of the patient. There are NO changes in the patient's condition. Risks, benefits, and alternatives have been discussed and questions answered. Patient agrees to proceed with procedure.
--- NOTE | 2022-02-16 11:13 | PM.OBPRVD ---
OB - Delivery Note Procedure Events: Intrauterine Growth Restriction (IUGR) Delivery augmentation: Rupture of Membranes and Pitocin Delivery monitor: External FHT and External Uterine Route of delivery: Episiotomy description: None Laceration Description: None Specimen: Yes Quantitative Blood Loss (ml): 250 Anesthesia type: Epidural Disposition: Floor Complications: None Narrative: Patient prepped and draped usual manner for this procedure. Maternal expulsive efforts delivered vertex over intact perineum. Upon delivery of the vertex a nuchal cord was noted and readily reduced. Rest baby was delivered without difficulty cord clamped and cut placenta delivered as well. Uterus was well contracted with minimal bleeding. Cervix vagina and vulva were inspected with no significant lacerations or tears. Immediate postoperative condition of mother and baby both excellent. Baby Weeks of gestation at delivery: 37 Infant gender: Female presentation: vertex Placenta delivery description: Spontaneous Cord Vessel Description: 3 Vessels score one minute: 9 score five minutes: 9 AMG Delivery Billing Delivery Delivery: Delivery Charge
--- NOTE | 2022-02-16 13:33 | OBPPTRN ---
1332-Patient transferred to post room #290 via wheelchair. Support person present. Oriented to unit, room, information board, rooming in, admission packet and security measures. Patient verbalizes understanding.
--- NOTE | 2022-02-16 15:02 | PC.NURSE ---
[id number] Introductions were made person to person since mother had consulted RN by phone on 02/13. Mother led the conversation with the?experience so far and states infant was left skin to skin and breastfed within the first hour on both breast. Mother voices concern that she believes nothing is coming out of the left breast . RN assisted mother with learning the skills of hand expression. 1/2 tsp was expressed from the left breast. lapped up the milk from the spoon and became more eager with feeding efforts. After a few attempts, using the teacup hold was able to latch to the right breast using the football position. Mother works well with her . Encouraged understanding of the benefits of skin to skin (unwrapping and placing vertically on her chest), responsive feeding and how to watch for early feeding signs, frequency of feeding on demand about every 8-12 times in 24 hours (every 2-3 hours), milk production, duration of feeding, signs of adequate intake/output and how to record on the feeding sheet. Reviewed positioning and ear, shoulder, hip alignment, supporting the breast, asymmetrical latch (off-center), and leading with the chin with a big open side gape. Education given to mother of how to visualize suck/swallow ratios and listen for the ka sound of drinking at the breast. was able to maintain latch without discomfort to mother. Nipple care reviewed with optimal latch and good positioning. Reviewed good handwashing when or touching the breast/nipples to prevent infection. Resources used to facilitate learning were used with the tool and mom and baby guide. Mother voiced understanding of responsive feedings, stimulating with skin to skin, hand expressed colostrum, massage touch, talking to infant to encourage if it has been 2 -3 hours since the start of the last , to call if infant does not latch or there is discomfort with . Reported to the primary RN. Resources provided for inpatient and outpatient services using a resource guide.
--- NOTE | 2022-02-16 15:31 | PC.NURSE ---
1517 - 1528 Consulted with patient to assess needs related to . Mother works well with her . Reviewed working with , breast, nipples and how to protect the nipples with an optimal deep latch, good positioning, and good hand washing. Encouraged understanding the benefits of skin to skin, responding to feeding cues, stimulating to breastfeed, using the teacup supporting of the breast with the football position, and encouraging swallowing at the breast. Reviewed positioning and alignment, supporting breast, off-centered (asymmetrical latch) and leading with the chin with big open wide gape. latched optimally to the left breast in football position. Education given to mother of how to visualize suck/swallow ratios and drinking at the breast. was able to maintain latch without discomfort to mother. Nipple care reviewed with optimal latch and good positioning. Reviewed hand expression if her infant doesn't latch. Mother voiced understanding of the education shared, calling for assistance if the infant does not wake to latch or if there is discomfort with . Reported to the primary RN.
[2022-02-16] MEDS: IBUPROFEN 600 MG TABLET PO ×2 (16:38→22:14)
[2022-02-16] MEDS: DOCUSATE SODIUM 100 MG CAPSULE PO (16:39)
[2022-02-16 17:25] LABS: Rapid Plasma Reagin Non-Reactive (NonReactive)
[2022-02-17 01:06] VITALS: BP 125/82; PULSE 84; RESP 16; TEMP 36.8; O2SAT 98
[2022-02-17 05:00] VITALS: BP 122/78; PULSE 80; RESP 16; TEMP 36.6; O2SAT 98
[2022-02-17] MEDS: IBUPROFEN 600 MG TABLET PO ×2 (05:07→16:24)
[2022-02-17 05:47] LABS: Hematocrit 31.1 % (37.0-47.0); Hemoglobin 10.3 g/dL (12.0-15.0)
[2022-02-17 08:15] VITALS: BP 120/62; PULSE 82; RESP 16; TEMP 36.9; O2SAT 99
[2022-02-17] MEDS: DOCUSATE SODIUM 100 MG CAPSULE PO ×2 (08:49→16:24)
[2022-02-17] MEDS: MULTIVIT/MIN/PREN/FOL AC/IRON TABLET 1 TAB PO (08:49)
--- NOTE | 2022-02-17 13:08 | WPDANLDPN2 ---
Anes-Prog Note L&D Date/Time: 02/17/22 13:08 Neuro status: Neuro function grossly intact. Vital Signs: Last Vital Signs Temp 36.9 C 02/17/22 08:15 Pulse 82 02/17/22 08:15 Resp 16 02/17/22 08:15 BP 120/62 02/17/22 08:15 Pulse Ox 99 02/17/22 08:15 O2 Del Method Room Air 02/17/22 07:45 Pain score (VAS): 0 Patient feedback: Patient satisfied with anesthetic care.
--- NOTE | 2022-02-17 13:25 | P.DS_ITS ---
DS: Admitting Diagnosis Discharge Date 02/18/2022 Admitting Diagnosis OB - DS: Summary OB Procedures : None OB Procedures Intrapartum: Spontaneous Vag Delivery OB Procedures: : None Time Spent with Patient Time attestation: Total time spent providing and/or coordinating discharge services: DS: Data Data Completed and Pending Pending studies at discharge: Pending at discharge 02/16/22 10:40 Surgical [PTH] Routine Labs on day of discharge: Labs from last 24 hours 02/17/22 02/16/22 05:20 05:18 Hgb 10.3 L Hct 31.1 L RPR Non-reactive Discharge Plan Discharge Discharging Clinician: Zay Henry Patient Disposition: Home, Self-Care Activity: as tolerated Diet: as tolerated Patient Instructions: Antibiotic Form Stand Alone Forms: General Discharge Information Follow-up/Referrals: Zay Henry MD [Physician] - 3 Weeks Discharge Medications: New ibuprofen 600 mg Tablet 600 mg PO Q6H PRN (Reason: Cramping) Qty: 30 0RF Continued Classic 28 mg iron- 800 mcg Tablet 1 tablet PO DAILY ondansetron HCl 4 mg tablet 4 mg PO Q6H Qty: 30 1RF Discontinued aspirin [Adult Aspirin Regimen] 81 mg tablet,delayed release (DR/EC) 81 mg PO DAILY acyclovir 400 mg tablet 400 mg PO BID Qty: 60 2RF fluconazole [Diflucan] 150 mg tablet 150 mg PO Q72H Qty: 2 0RF Rx Instructions: take 1 tab by mouth every 72 hours Date of admission: 02/16/22 04:41 Primary Care Provider: PHYSICIAN,EXPLOSIVES HANDLER Admitting Provider: Zay Henry Attending physician on admission: Zay Henry Condition: Stable
--- NOTE | 2022-02-17 14:40 | PC.NURSE ---
[id number] Consulted with patient to assess needs related to . Mother led conversation with her experience with feeding baby so far and states she has been her infant with no pain just some soreness. Mother just finished a feeding and will call for the next feeding. [id number] Mother has been unable to wake her 37 EGA to wake and breastfeed. Mother works well with her with encouragement. Reviewed working with , breast, nipples and how to protect the nipples with an optimal deep latch, good positioning, and good hand washing. Encouraged understanding the benefits of skin to skin, responding to feeding cues, frequencies of feeding 8-12 times in 24 hours (approximately 2-3 hours), duration of feedings, milk production, intake/output feeding sheet and signs of adequate intake encouraging swallowing at the breast. Reviewed positioning and alignment, supporting breast, off-centered (asymmetrical latch) and leading with the chin with big open wide gape. Infant attempts several times over a 15-20 minute time period. opens wide, latches, takes a few sucks and is unable to maintain latch. Mother hand expresses 5mls and infant laps up the milk from the spoon. Nipple care reviewed with optimal latch and good positioning. Resources used to facilitate learning were used from the tool. Mother voiced understanding of the education shared, calling for assistance if the infant does not latch or if there is discomfort with . Reported to the primary RN.
--- NOTE | 2022-02-17 16:14 | PC.NURSE ---
[id number] Consulted with patient to assess needs related to . Attempts were made to latch infant in football and cross cradle. opens wide but doesn't maintain sucking with sandwich or teacup hold. Breast pump provided due to ineffective . Instructions given on cleaning, care, usage, that there should be no pain, pumping schedule for milk production, collection, and storage of human milk. Parents are encouraged to record pumping schedule on the feeding sheet. Patient was assessed for correct placement, flange size given 21mm flange for a better fit after measuring, to pump for comfort and nipple stretching/stimulation for adequate milk production every 3 hours (8 times in 24 hours) 1-2 times at night. After pumping for a few minutes infant latched optimally to the left breast in laid-back non-conventional cross cradle allowing to explore and latch on her own. Education given to mother of how to visualize suck/swallow ratios and drinking at the breast. was able to maintain latch without discomfort to mother. Nipple care reviewed with optimal latch and good positioning. Mother voiced understanding of the education shared, calling for assistance if the infant does not latch or if there is discomfort with . Reported to the primary RN.
[2022-02-17 18:53] VITALS: BP 130/78; PULSE 86; RESP 16; TEMP 36.1
[2022-02-18 08:30] VITALS: BP 121/87; PULSE 72; RESP 16; TEMP 36.7; O2SAT 97
[2022-02-18] MEDS: MEASLES,MUMPS,RUBELLA VACCINE 0.5 ML VIAL SUB-Q (08:33)
[2022-02-18] MEDS: MULTIVIT/MIN/PREN/FOL AC/IRON TABLET 1 TAB PO (08:34)
[2022-02-18] MEDS: IBUPROFEN 600 MG TABLET PO (08:34)
[2022-02-18] MEDS: DOCUSATE SODIUM 100 MG CAPSULE PO (08:34)
[2022-02-20 10:06] VITALS: BP 126/88; PULSE 78; RESP 20; TEMP 36.8; O2SAT 99
--- NOTE | 2022-02-22 15:30 | PM.OBDSVD ---
DS: Admitting Diagnosis Discharge Date 02/18/22 Admitting Diagnosis OB - DS: Summary OB Procedures : None OB Procedures Intrapartum: Spontaneous Vag Delivery OB Procedures: : None Time Spent with Patient Time attestation: Total time spent providing and/or coordinating discharge services: DS: Data Data Completed and Pending Completed studies during hospitalization: Pending at discharge 02/16/22 10:40 Surgical [PTH] Routine Discharge Plan Discharge Consulting providers: Clover Graham ; Anupama Cadet Discharging Clinician: Zay Henry Patient Disposition: Home, Self-Care Activity: as tolerated Diet: as tolerated Discharge Instructions: Education: Mom and Baby Guide Given to: Mother Follow-Up: Call your delivering provider's office for an appointment to be seen in: 3 Weeks Mom and baby should come to the [facility] for the follow-up appointment. Appointment Date/Time: February 20, 2022 at 9:00 am What to expect at your follow-up visit: Blood Pressure Check Physical Assessment Call [phone] if you are unable to keep your appointment time. BREAST CARE: * Wear a snug supportive bra. * For engorgement discomfort: Breast Feeding: * Apply warm moist washcloths * Express milk as needed to relieve engorgement * Wear loose clothing Bottle Feeding: * May apply ice packs * For sore nipples: * Identify correct latch-on * Apply warm moist washcloths before and after nursing * Air dry nipples after nursing * May apply Lansinoh cream to nipples PERINEAL CARE: * Until bleeding stops, use your sofy bottle after urinating * Change your pad frequently throughout the day * You may take sitz baths several times a day (fill your bathtub with warm water and soak for 20 minutes.) Do NOT bathe in the water * No tub baths until seen by your physician - You may shower ACTIVITY: * Rest as much as possible. * Do not exercise or lift anything heavier than your baby (such as laundry or other children.) * Avoid stairs or driving as much as possible. * Do not put anything into the vagina. No douching, tampons, or sexual activity until seen by physician. NOTIFY PHYSICIAN IF YOU HAVE ANY QUESTIONS OR IF ANY OF THE FOLLOWING SYMPTOMS OCCUR: * If your vaginal bleeding becomes foul smelling. * If your vaginal bleeding becomes more heavy than a period or if your bleeding changes from pink to bright red. However, you may pass an occasional walnut-sized clot once or twice for the first week . * If you experience a sharp, shooting pain in your calves. * If you discover a hard, reddened area on your breast or if you experience flu-like symptoms. DIET: * Eat regular, well-balanced meals. * Drink plenty of fluids daily. If , drink to thirst. Patient Instructions: Antibiotic Form Stand Alone Forms: General Discharge Information Follow-up/Referrals: Zay Henry MD [Physician] - 3 Weeks Discharge Medications: New ibuprofen 600 mg Tablet 600 mg PO Q6H PRN (Reason: Cramping) Qty: 30 0RF Continued Classic 28 mg iron- 800 mcg Tablet 1 tablet PO DAILY ondansetron HCl 4 mg tablet 4 mg PO Q6H Qty: 30 1RF Discontinued aspirin [Adult Aspirin Regimen] 81 mg tablet,delayed release (DR/EC) 81 mg PO DAILY acyclovir 400 mg tablet 400 mg PO BID Qty: 60 2RF fluconazole [Diflucan] 150 mg tablet 150 mg PO Q72H Qty: 2 0RF Rx Instructions: take 1 tab by mouth every 72 hours No Action dicloxacillin 500 mg capsule 500 mg PO BID 10 Days Qty: 20 0RF Date of admission: 02/16/22 04:41 Primary Care Provider: PHYSICIAN,REPAIR MANAGER Admitting Provider: Zay Henry Attending physician on admission: Zay Henry Condition: Stable
== END 2022-02-18 11:40 | disposition home or self-care (01) | DRG 807 ==
LOC: ANHLDR 04:43 → ANHOB2 13:45
PROVIDERS: Admitting Provider Obstetrics & Gynecology; Visit Provider Obstetrics & Gynecology
DX: O36.5930 Maternal care for other known or suspected poor fetal growth, third trimester, not applicable or unspecified (principal); Z37.0 Single live birth; Z3A.37 37 weeks gestation of pregnancy; O99.824 Streptococcus B carrier state complicating childbirth; O69.81X0 Labor and delivery complicated by cord around neck, without compression, not applicable or unspecified
CPT/HCPCS: 36415; 85014; 85018; 85025; 86592; 86850; 86880; 86900; 86901; 86902; 88307; 90710; A9270; J0290; J2405; J2590; J2795; J3010; J7120

== ENCOUNTER 2022-05-27 09:48 | Outpatient (CLI) | payer BC, OTHER, SELFPAY ==
[2022-05-27 11:19] LABS: Beta HCG Quantitative < 2.39 mIU/ML
== END 2022-05-27 09:49 | disposition home or self-care (01) ==
LOC: ANHLAB 09:51
PROVIDERS: Visit Provider Obstetrics & Gynecology
DX: N92.6 Irregular menstruation, unspecified (principal)
CPT/HCPCS: 36415; 84702

== ENCOUNTER 2022-08-14 12:49 | Emergency (ER) | payer BC, OTHER, SELFPAY ==
[2022-08-14 12:57] VITALS: BP 132/94; PULSE 82; RESP 16; TEMP 36.8; O2SAT 99
--- NOTE | 2022-08-14 13:03 | ED.SKABFB ---
HPI - Skin/Abscess/Foreign Bdy General Chief complaint: Skin/Abscess/Foreign Body Stated complaint: Skin Sore Source: patient and RN notes reviewed History of Present Illness HPI narrative: 22 yo F presents to urgent care with complaints of a painful bump to her right upper back x 3 days. Pt states she has not had any drainage from the area. Denies any fevers, chills, or vomiting. Related Data Home Medications Medication Instructions Recorded Confirmed vits no.126-ferrous fum 1 tablet PO DAILY 12/30/19 03/17/22 28 mg iron-folic acid 800 mcg tablet (Classic ) levonorgestrel 21 mcg/24 hours (8 1 device intrauterine ONCE 05/29/22 05/29/22 yrs) 52 mg intrauterine device (Mirena) Allergies Allergy/AdvReac Type Severity Reaction Status Date / Time No Known Allergies Allergy Verified 05/29/22 15:00 Review of Systems Review of Systems: CONSTITUTIONAL: Denies fever, chills, or sweats. EYES: Denies visual changes, redness, or discharge. ENT: Denies otalgia and sore throat CARDIOVASCULAR: Denies chest pain, palpitations, or edema. RESPIRATORY: Denies cough or dyspnea. GASTROINTESTINAL: Denies abdominal pain, nausea, vomiting, or diarrhea. GENITOURINARY: Denies dysuria or hematuria. SKIN: Painful bump to right upper back MUSCULOSKELETAL: Denies back pain, joint pain, or myalgia. NEUROLOGIC: Denies headache, numbness, or weakness. Pertinent positives per HPI. [facility] Past Medical History Medical History (Updated 08/14/22 @ 13:17 by Lori Singh APRN) Anxiety Encounter for insertion of mirena IUD Encounter for screening examination for sexually transmitted disease HSV-2 (herpes simplex virus 2) infection Irregular periods Suppression of menstruation Surgical History Surgical History (Updated 05/29/22 @ 15:03 by ZEHRA Raya) History of appendectomy (~2010) History of gynecological procedure (05/29/22) mirena iud insertion Family History Family History Mother No problems noted. Father Diverticulitis Grandparent Lung cancer Grandparent Breast cancer Social History Social History Years smoked: 1.5 Smoking status: Current every day smoker Tobacco type: e-cigarettes/vaping Second hand tobacco smoke exposure: No Alcohol intake: never Substance use: former Substance use type: marijuana Last use: 05/2021 Living arrangements: other Additional living arrangements comments: single Occupation/Education: other Additional occupation/education comments: stay at home mom Gender identity (if verbalized by the patient): Female Sexual Orientation (if Verbalized by the Patient): Straight or Heterosexual Spiritual care concerns: No Comments At the time of my signature, I reviewed and agree with the nursing past medical, surgical, social, and family history. There is no relevant family history pertinent to the patient complaint. Exam Narrative: GENERAL: This is a well-nourished, well-developed patient, in no apparent distress. HEAD: normocephalic, atraumatic. EYES: PERRL. Sclera clear/white. Vision is grossly intact. EARS: External ears normal, auditory canals clear and without drainage, TMs normal without perforation. Hearing grossly intact. NOSE: External nose normal with no obvious nasal discharge, nares without redness, no rhinorrhea. THROAT: Mucous membranes moist, posterior pharynx clear. NECK: Neck supple, non-tender without lymphadenopathy, masses or thyromegaly. CARDIOVASCULAR: Regular rate and rhythm without murmurs, gallops, or rubs. RESPIRATORY: Clear to auscultation. Breath sounds equal bilaterally. No wheezes, rales, or rhonchi. GASTROINTESTINAL: Abdomen soft, non-tender, nondistended. Bowel sounds are active. No hepato-splenomegaly, or palpable masses. No guarding. SKIN: <0.5 cm erythremic papulae with yel
== END 2022-08-14 13:23 | disposition home or self-care (01) ==
PROVIDERS: Emergency Provider Nurse Practitioner Family; PCP Nurse Practitioner Family
DX: L73.9 Follicular disorder, unspecified (principal); F17.290 Nicotine dependence, other tobacco product, uncomplicated
CPT/HCPCS: 99213; G0463

== ENCOUNTER 2023-12-08 19:56 | Emergency (ER) | payer BC, MEDICAID, SELFPAY ==
[2023-12-08 19:59] VITALS: BP 129/102; PULSE 128; RESP 18; TEMP 36.2; O2SAT 100
[2023-12-08] MEDS: SILVER NITRATE (*SP) STICK 1 EACH TOPICAL (20:25)
[2023-12-08] MEDS: TETANUS,DIPHTHERIA,AC PERTUSSIS ADULT 0.5 ML (ADACEL) IM (20:40)
--- NOTE | 2023-12-08 20:46 | ED.GENADULT ---
HPI - General Adult General Chief complaint: Wound/Laceration Stated complaint: laceration Time Seen by Provider: 12/08/23 20:03 History of Present Illness HPI narrative: Patient sliced off the tip of her right middle finger at home while preparing a cucumber salad using a device called a mandoline. She was unable to control the bleeding with direct pressure and so presented to the emergency department. no other injuries in the event. Patient has not had a Tdap in the past years. Related Data Home Medications Medication Instructions Recorded Confirmed levonorgestrel 21 mcg/24 hr (up to 1 device intrauterine ONCE 05/29/22 09/06/22 8 years) 52 mg intrauterine device (Mirena) Allergies Allergy/AdvReac Type Severity Reaction Status Date / Time No Known Allergies Allergy Verified 12/08/23 20:53 [facility] Past Medical History Medical History (Updated 12/08/23 @ 20:55 by Oren Chino MD) Anxiety Encounter for insertion of mirena IUD Encounter for screening examination for sexually transmitted disease HSV-2 (herpes simplex virus 2) infection Irregular periods Suppression of menstruation Vaginal discharge Surgical History Surgical History History of appendectomy (~2010) History of gynecological procedure (05/29/22) mirena iud insertion Family History Family History Mother No problems noted. Father Diverticulitis Grandparent Lung cancer Grandparent Breast cancer Social History Social History Years smoked: 1.5 Smoking status: Current every day smoker Tobacco type: e-cigarettes/vaping Second hand tobacco smoke exposure: No Alcohol intake: current Alcohol use details: 4 x month Substance use: former Substance use type: marijuana Last use: 05/2021 Living arrangements: other Additional living arrangements comments: single Occupation/Education: other Additional occupation/education comments: stay at home mom Gender identity (if verbalized by the patient): Female Sexual Orientation (if Verbalized by the Patient): Straight or Heterosexual Spiritual care concerns: No Exam Narrative: FOCUSED EXAM: acute capillary bleeding from an approximate 7 mm x 7 mm defect at the very tip of the right middle finger. Bleeding controlled with direct pressure and or tourniquet. VITAL SIGNS: Reviewed and all within normal limits. GEN: Awake, alert, and appropriate to situation. Appropriate mood and affect. Nontoxic, NAD. NEURO: Normal speech. Balance and gait both appear normal. No lateralizing or focal deficits noted. Course Vital Signs Vital signs: Vital Signs Temperature 36.2 C L 12/08/23 19:59 Pulse Rate 128 H 12/08/23 19:59 Respiratory Rate 18 12/08/23 19:59 Blood Pressure 129/102 H 12/08/23 19:59 Pulse Oximetry 100 12/08/23 19:59 Oxygen Delivery Room Air 12/08/23 19:59 Temperature 36.2 C L 12/08/23 19:59 Pulse Rate 128 H 12/08/23 19:59 Respiratory Rate 18 12/08/23 19:59 Blood Pressure 129/102 H 12/08/23 19:59 Pulse Oximetry 100 12/08/23 19:59 Oxygen Delivery Room Air 12/08/23 19:59 Medical Decision Making MDM Narrative Medical decision making narrative: Patient was placed in Room #:?7 Independent Historian: None External Source Review: none home Differential diagnosis includes but not limited to:? laceration/ avulsion Medications were Reviewed: home meds Independently Interpreted by me: none Medications, treatment, ED course: finger tourniquet was placed and silver nitrate was applied to the wound. Subsequent pressure dressing with sterile gauze and Coban was applied. A finger splint was used to immobilize the finger for the next 24 hours. Social situation impacting patients care: Lives at home with partner and children Shared d
[2023-12-08 20:58] VITALS: BP 134/94; PULSE 114; RESP 18; O2SAT 99
== END 2023-12-08 21:00 | disposition home or self-care (01) ==
PROVIDERS: Emergency Provider Family Medicine; PCP Nurse Practitioner
DX: S61.212A Laceration without foreign body of right middle finger without damage to nail, initial encounter (principal); F17.290 Nicotine dependence, other tobacco product, uncomplicated; Z23 Encounter for immunization; W27.4XXA Contact with kitchen utensil, initial encounter
CPT/HCPCS: 12001; 90471; 90715; 99283

== ENCOUNTER 2024-09-16 15:18 | Outpatient (CLI) | payer BC, MEDICAID, SELFPAY ==
--- OUTSIDE RECORDS SUMMARY | 2024-09-16 15:23 | XMS_ITS | Clinical Summary ---
Author Organization [address] lt Address [address] [place] [address] Care Team Providers Care Mental Health Social Worker Name Role Phone Esther Rodrigues NP Primary Care Provider [phone] Allergies No known active allergies Medications levonorgestreL (Mirena) IUD Active valACYclovir (VALTREX) 500 mg tablet Take 1 tablet (500 mg total) by mouth 2 (two) times a day As needed Active tirzepatide, weight loss, (ZEPBOUND) 2.5 mg/0.5 mL pen injectorIndicati ons:Weight loss counseling, encounter for Inject 0.5 mL (2.5 mg total) under the skin every 7 days 2 mL 5 09/29/19 25 Active dicyclomine (BENTYL) 10 mg capsuleIndicatio ns:Abdominal pain Take 1 capsule (10 mg total) by mouth 4 (four) times a day before meals and nightly 120 capsule 11 5 08/30/19 26 Active silver sulfadiazine (SILVADENE, SSD) 1 % cream Apply topically daily 400 g 5 08/30/19 25 Discontin ued(Patie nt Reported) Active Problems Problem Noted Date Diagnosed Date Weight loss counseling, encounter for 04/15/2024 Assessment & Plan (08/29/2024 3:20 PM CDT): Discussed protein intake requirements, weight loss medications, heathy eating, and exercise requirements. Will see if Zepbound is covered. Has been on phentermine and Wellbutrin in the past and did not tolerate. Will continue to monitor. Orders: Hemoglobin A1c; Future CBC with auto differential; Future tirzepatide, weight loss, (ZEPBOUND) 2.5 mg/0.5 mL pen injector; Inject 0.5 mL (2.5 mg total) under the skin every 7 days Assessment & Plan (04/15/2024 11:42 AM JIGGER ARTISAN): Will trial Phentermine. Discussed medication side-effects and warning signs. Acute non-recurrent maxillary sinusitis 04/15/20 Assessment & Plan (04/15/2024 11:44 AM JIGGER ARTISAN): Will watch and wait. Advised OTC cold and sinus medication. Advised to call if no improvement by end of week. Class 1 obesity due to exces s calories with serious comorbidity and body mass index (BMI) of 34.0 to 34.9 in adult 01/21/2024 Assessment & Plan (08/29/2024 3:20 PM CDT): Encouraged heart healthy diet and lifestyle. Advised 150 min/week of aerobic exercise. Assessment & Plan (04/15/2024 11:30 AM JIGGER ARTISAN): Encouraged heart healthy diet and lifestyle. Advised 150 min/week of aerobic exercise. Assessment & Plan (01/21/2024 1:38 PM CDT): No change in weight Tolerating Wegovy well Increase Wegovy 1 mg in 3 weeks Keep follow up appt in April Mixed anxiety and depressive disorder 03/28/2023 Assessment & Plan (08/29/2024 3:20 PM CDT): Stable and not requiring medication at this time. Will continue to monitor. Chronic migraine without aur a without status migrainosus, not intractable 10/29/2022 Assessment & Plan (08/29/2024 3:20 PM CDT): Stable and controlled. Will continue to monitor. No currently requiring medication. Resolved Problems Problem Noted Date Diagnosed Date Resolved Date Conjunctivitis 02/28/2023 01/21/2024 Fatigue 09/08/2022 01/21/2024 Abnormal cortisol level 07/31/202212/24 Cervico-occipital neuralgia 07/05/2022 01/21/2024 Verruca plantaris 04/06/2020 01/21/2024 Cranial neuralgia 03/30/2020 01/21/2024 Head ache 09/08/2016 01/21/2024 Vitamin deficiency 09/08/2016 Encounters Date Type Department Care Team Description 09/02/2024 Results [facility] [address] [phone] Madhavi Lam NP Lipid panel, CBC with auto differential, Hemoglobin A1c, Additional followed-up results: 2 09/01/2024 Telephone [facility] [address] [phone] Esther Rodrigues NP Prior Authorization Zepbound 08/29/2024 4:15 PM CDT Lab [facility] [address] [place] [phone] Encounter for screening for lipid disorder; Weight loss counseling, encounter for; Diabetes mellitus screening; Thyroid disorder screening 08/29/2024 4:00 PM CDT [facility] [address] [place] [phone] 08/29/2024 3:30 PM CDT [facility] Visit [facility] [address] [address] Madhavi Lam NP Abdominal pain (Primary Dx); Weight loss counseling, encounter for; Mixed anxiety and depressive disorder; Chronic migraine without aura without status migrainosus, not intractable; Encounter for screening for lipid disorder; Thyroid disorder screening; Diabetes mellitus screening; Class 1 obesity due to excess calories with serious comorbidity and body mass index (BMI) of 34.0 to 34.9 in adult from Last 3 Months Immunizations Immunization Administration Dates Next Due DTaP 08/15/2004, 1,01/31/2000,11/28,1999 HPV, Quadrivalent 08/08/2011,02/03/2011,11/22/19 11 Hep A, Pediatric 05/27/2007,11/19/2006 Hep B, Adolescent or Pediatric 09/05/2001,2000,1999 Hib (PRP-OMP) 02/04/2001, 0,1999,09/28 IPV 08/15/2004, 1,1999,09/28 Influenza, Quadrivalent, Spl it, Intramuscular 03/26/2014 Influenza, Quadrivalent, Spl it, Preservative Free, Intramuscular 01/16/2020,04/10/2017 Influenza, Trivalent, Preser vative Free, Intramuscular 03/03/2013 Influenza, Unspecified 08/29/2024(Deferr ed: Patient Refused),01/21/2024(Deferred: Patient Refused),12/23/2023(Deferred: Patient Refused),02/22/2023(Deferred: Patient Refused),01/21/2023(Deferred: Patient Refused),01/21/2022(Deferred: Patient Refused) MMR 01/16/2020,08/15/2004,11/07/2000 MMRV 11/21/2010,07/30/2000 Meningococcal Conjugate (Menveo) 11/27/2016 Meningococcal MCV4P (Menactra) 11/21/2010 Pneumococcal Conjugate 7-Valent 11/08/19 01,01/31/2000,1999,09/28 Tdap 01/16/2020,11/21/2010 Surgical History Surgery Date Site/Laterality Comments APPENDECTOMY VAGINAL DELIVERY x2 Medical History Medical History Date Comments Headache Vitamin D deficiency HSV infection ADHD (attention deficit hyperactivity disorder) Neuralgia Anxiety Migraines Family History Medical History Relation Name Comments Cancer Maternal Grandfather Lung Cancer Maternal Grandmother Breast Alcohol abuse Mother Thyroid disease Mother Relation Name Status Comments Father Alive Maternal Grandfather Lung Alive Maternal Grandmother Breast Alive Mother Alive Social History Tobacco Use Types Packs/Day Years Used Date Smoking Tobacco: Every Day Vaping Tobacco Cessation:Ready to Q uit: Not Asked; Counseling Given: Not Answered [facility] Utilities Answer Date Recorded In the past 12 months has th e electric, gas, oil, or water [employer] threatened to shut off services in your home? No 01/21/2024 Humiliation, Afraid, Rape, and Kick questionnair e Answer Date Recorded Within the last year, have y ou been afraid of your partner or ex-partner? No 01/21/2024 Within the last year, have y ou been humiliated or emotionally abused in other ways by your partner or ex-partner? No Within the last year, have y ou been kicked, hit, slapped, or otherwise physically hurt by your partner or ex-partner? No 01/21/2024 Within the last year, have y ou been raped or forced to have any kind of sexual activity by your partner or ex-partner? No 01/21/2024 Social Connection and Isolation Panel [NHANES] A nswer Date Recorded In a typical week, how many times do you talk on the phone with family, friends, or neighbors? Twice a week 01/21/2024 How often do you get together with friends or re latives? Twice a week 01/21/2024 How often do you attend spiritism or quaker serv ices? Never 01/21/2024 Do you belong to any clubs o r organizations such as spiritism groups, unions, fraternal or athletic groups, or school groups? No 01/21/2024 How often do you attend meet ings of the clubs or organizations you belong to? Never 01/21/2024 Are you , , di vorced, , never , or living with a partner? Never 01/21/2024 AUDIT-C Answer Date Recorded Q1: How often do you have a drink containing alc ohol? 2-4 times a month 01/21/2024 Q2: How many drinks containi ng alcohol do you have on a typical day when you are drinking? 3 or 4 01/21/2024 Q3: How often do you have si x or more drinks on one occasion? Less than monthly 01/21/2024 Overall Financial Resource Strain (CARDIA) Answe r Date Recorded How hard is it for you to pa y for the very basics like food, housing, medical care, and heating? Not hard at all 01/21/2024 PHQ-2 Answer Date Recorded PHQ-2 Total Score (If total score is 3 or more points, staff should administer the PHQ-9) 0 08/29/2024 [facility] - Occupational Stress Questionnaire Answer Date Recorded Do you feel stress - tense, restless, nervous, or anxious, or unable to sleep at night because your mind is troubled all the time - these days? Rather much 01/21/2024 Exercise Vital Sign Answer Date Recorde d On average, how many days pe r week do you engage in moderate to strenuous exercise (like a brisk walk)? 7 days 01/21/2024 On average, how many minutes do you engage in exercise at this level? 60 min 01/21/2024 Hunger Vital Sign Answer Date Recorded Within the past 12 months, y ou worried that your food would run out before you got the money to buy more. Never true 01/21/20 24 Within the past 12 months, t he food you bought just didn't last and you didn't have money to get more. Never true 01/21/2024 PRAPARE - Transportation Answer Date Re corded In the past 12 months, has l ack of transportation kept you from medical appointments or from getting medications? No 12/24 In the past 12 months, has l ack of transportation kept you from meetings, work, or from getting things needed for daily living? No 01/21/2024 PHQ-9 Answer Date Recorded PHQ-9 Total Score 0 01/21/2024 Housing Stability Vital Sign Answer Thai e Recorded In the last 12 months, was t here a time when you were not able to pay the mortgage or rent on time? No 01/21/2024 In the past 12 months, how m any times have you moved where you were living? 0 01/21/2024 At any time in the past 12 m [facility], were you homeless or living in a snf (including now)? No 01/21/2024 Comments Unknown Sex and Gender Information Value Date Recorded Sex Assigned at Not on file Legal Sex Female 2:19 PM JIGGER ARTISAN Gender Identity Female 10/25/2022 10:05 AM CDT Sexual Orientation Not on file Obstetrics History Last Filed Vital Signs Vital Sign Reading Time Taken Comments Blood Pressure 122/72 08/29/2024 2:52 PM CDT Pulse 108 08/29/2024 2:52 PM CDT Temperature 37.2 C (98.9 F) 04/15/2024 11:32 AM JIGGER ARTISAN Respiratory Rate 18 08/29/2024 2:52 PM CDT Oxygen Saturation 98% 08/29/2024 2:52 PM CDT Inhaled Oxygen Concentration - - Weight 88.7 kg (195 lb 9.6 oz) 08/29/2024 2:52 P M CDT Height 157.5 cm (5' 2.01 ) 08/29/2024 2:52 PM CD T Body Mass Index 35.77 08/29/2024 2:52 PM CDT Plan of Treatment Health Maintenance Due Date Last Done Comments Pneumococcal vaccine <65 (1 of 1 - PPSV23) 07/28/2005 11/07/2000, 01/31/2000, 1999, Additional history exists Cervical Cancer Screening 06/07/2023 06/07/2022 Regular Well Visit/Exam 18-64 05/18/2024 05/18/2023 Influenza Vaccine (Season Ended) 2024 01/16/2020, 04/10/2017, 03/26/2014, Additional history exists Depression Screening 08/29/2025 08/29/2024, 01/21/2024, 05/18/2023 DTaP/Tdap/Td Vaccine (8 - Td or Tdap) 01/15/2030 01/16/2020, 11/21/2010, 08/15/2004, Additional history exists Hepatitis B Screening Completed 09/05/2001 , 05/02/2000, 1999 Varicella Vaccines Completed 11/21/2010, 07/30/2000 HPV Vaccines Completed 08/08/2011, 01/21, 11/21/2010 Hepatitis C Screening Completed 08/29/2024 Procedures Procedure Name Priority Date/Time Associated Diagnosis Comments HEPATITIS PANEL, ACUTE Routine 08/29/2024 3:21 PM CDT RPR Routine 08/29/2024 3:21 PM CDT HIV 1/2 ANTIBODY PLUS P24 ANTIGEN Routine 08/29/2024 3:21 PM CDT HSV 2 ANTIBODY, IGG Routine 08/29/2024 3 :21 PM CDT HSV 1 ANTIBODY, IGG Routine 08/29/2024 3 :21 PM CDT DIFFERENTIAL AUTO Routine 08/29/2024 3:1 9 PM CDT Weight loss counseling, encounter for THYROID FUNCTION CASCADE Routine 08/29/2024 3:19 PM CDT Thyroid disorder screening HEMOGLOBIN A1C Routine 08/29/2024 3:19 PM CDT Weight loss counseling, encounter for Diabetes mellitus screening CBC WITH AUTO DIFFERENTIAL Routine 08/29/2024 3:19 PM CDT Weight loss counseling, encounter for LIPID PANEL Routine 08/29/2024 3:19 PM CDT Encounter for screening for lipid disorder from Last 3 Months Results * HIV 1/2 Antibody plus p24 Antigen Blood (08/29/2024 3:21 PM CDT) HIV 1/2 ab + p24 ag Nonreactive Nonreactive Comment: Nonreactive for HIV-1 antigen and HIV-1/HIV-2 antibodies. No laboratory evidence of HIV infection. If acute HIV infection is suspected, consider testing for HIV-1 RNA. Testing performed by: [facility], [address] [place] [address]., [id number] Blood 08/29/2024 3:21 PM CDT 08/29/2024 3:23 PM CDT us Zya Henry MD LAB MICROBIOLOGY - GENERAL ORDERABLES Final Result LEATHA PRIETO [place]) [address] [facility] [place] [address] * Hepatitis panel, acute Blood (08/29/2024 3:21 PM CDT) Hep A IgM Nonreactive Nonreactive Comment: Interpretive Data: If Hep A IgM Ab is reported as Equivocal, a new sample should be drawn in two weeks for testing. Current interpretive data was last revised on 19. Testing performed by: [facility], [address] [place] [address]., [id number] Hep B core IgM Nonreactive Nonreactive Jihan PRIETO ([place]) Comment: Interpretive Data If HepB Core IgM Ab is reported as Equivocal, a new sample should be drawn in two weeks for testing. Current interpretive data was last revised on 19. Testing performed by: [facility], [address] [place] [address]., [id number] Hep C Ab Nonreactive Nonreactive LEATHA PRIETO ([place]) Comment: Interpretive Data Nonreactive: Antibodies to HCV not detected. Does NOT exclude the possibility of recent exposure to HCV. Equivocal: Equivocal for HCV antibodies. Supplemental molecular testing will be automatically performed to determine infection status in accordance with current CDC screening recommendations. Reactive: Positive for HCV antibodies. This may represent current or past HCV infection. Supplemental molecular testing will be automatically performed to determine current infection status in accordance with current CDC screening recommendations. Interpretive data was last revised on 2019. Testing performed by: [facility], [address] [place] [address]., [id number] HepBsAg Nonreactive Nonreactive LEATHA PRIETO ([place]) Comment:Testing performed by : [address] [id number] Blood 08/29/2024 3:21 PM CDT 08/29/2024 3:23 PM CDT us Zay Henry MD LAB MICROBIOLOGY - GENERAL ORDERABLES Final Result LEATHA PRIETO ([place]) 1 [facility] Department [place] [address] * (ABNORMAL) HSV 2 IgG Antibody Blood (08/29/2024 3:21 PM CDT) [facility] HSV 2 IgG Reactive( A) Nonreactive Comment: Interpretive Data 1. Nonreactive: No detectable IgG antibody to HSV-2. 2. Equivocal: Presence or absence of detectable antibodies to HSV-2 cannot be determined and the test should be repeated. 3. Reactive: Indicates presence of detectable IgG antibody to HSV-2. Current interpretive data was last revised on 2022. Testing performed by: [facility], [address] [facility], [place]., [address] Blood 08/29/2024 3:21 PM CDT 08/29/2024 9:38 PM CDT Zay Henry MD LAB MICROBIOLOGY - GENERAL ORDERABLES Final Result Performing Organization Address City/[facility]/ZIP Co de Phone Number [facility] ([place]) 1 [facility] [place] [address] * (ABNORMAL) HSV 1 IgG Antibody Blood (08/29/2024 3:21 PM CDT) HSV 1 IgG Reactive( A) Nonreactive Comment: Interpretive Data 1. Nonreactive: No detectable IgG antibody to HSV-1. 2. Equivocal: Presence or absence of detectable antibodies to HSV-1 cannot be determined and the test should be repeated. 3. Reactive: Indicates presence of detectable IgG antibody to HSV-1. Current interpretive data was last revised on 2016. Testing performed by: [facility], [address] [facility], [place]., [address] Blood 08/29/2024 3:21 PM CDT 08/29/2024 9:38 PM CDT us Zay Henry MD LAB MICROBIOLOGY - GENERAL ORDERABLES Final Result Performing Organization Address City/[facility] Co de Phone Number [facility] ([place]) 1 [facility] [place] [address] * RPR Blood (08/29/2024 3:21 PM CDT) RPR Nonreactive Nonreactive Comment:Testing performed by : [facility], [address] [place] [address], [place]., [address] Blood 08/29/2024 3:21 PM CDT 08/29/2024 3:23 PM CDT us Zay Henry MD LAB MICROBIOLOGY - GENERAL ORDERABLES Final Result [facility] ([place]) 1 [facility] Department [place] [address] * (ABNORMAL) Differential, auto (08/29/2024 3:19 PM CDT) Neutrophil abs 7.95(H) 1.50 - 6.50 K/cumm Comment:Testing performed by : [facility], [address] [place] [address], [id number] Imm gran abs 0.03 0.00 - 0.10 K/cumm [facility] ([place]) Comment:Testing performed by : [address], [address] Lymphocyte abs 3.17 0.80 - 3.30 K/cumm [facility] ([place]) Comment:Testing performed by : [address], [address] Monocyte abs 0.70 0.20 - 0.80 K/cumm [facility] ([place]) Comment:Testing performed by : [facility], [address] [place] [address], [id number] Eosinophil abs 0.05 0.00 - 0.50 K/cumm [facility] ([place]) Comment:Testing performed by : [address] [address] Basophil abs 0.04 0.00 - 0.10 K/cumm [facility] ([place]) Comment:Testing performed by : [address], [address] Neutrophil pct 66.6 % [facility] R [facility] ([place]) Comment: Interpretive Data Percent cell count reference ranges are not reported, since discordance with absolute values may lead to misinterpretation of CBC data. Current Interpretive Data was last revised on 2017. Testing performed by: [address], [address] Imm gran pct 0.3 % [facility] ([place]) Comment: Interpretive Data Percent cell count reference ranges are not reported, since discordance with absolute values may lead to misinterpretation of CBC data. Current Interpretive Data was last revised on 2017. Testing performed by: [facility], [address] [place] [address]., [address] Lymphocyte pct 26.5 % [facility] ([place]) Comment: Interpretive Data Percent cell count reference ranges are not reported, since discordance with absolute values may lead to misinterpretation of CBC data. Current Interpretive Data was last revised on 2017. Testing performed by: [facility], [address] [place] [address]., [address] Monocyte pct 5.9 % [facility] ([place]) Comment: Interpretive Data Percent cell count reference ranges are not reported, since discordance with absolute values may lead to misinterpretation of CBC data. Current Interpretive Data was last revised on 2017. Testing performed by: [facility], [address] [place] [address]., [address] Eosinophil pct 0.4 % [facility] ([place]) Comment: Interpretive Data Percent cell count reference ranges are not reported, since discordance with absolute values may lead to misinterpretation of CBC data. Current Interpretive Data was last revised on 2017. Testing performed by: [facility], [address] [place] [address]., [address] Basophil pct 0.3 % [facility] ([place]) Comment: Interpretive Data Percent cell count reference ranges are not reported, since discordance with absolute values may lead to misinterpretation of CBC data. Current Interpretive Data was last revised on 2017. Testing performed by: [address] [address] Blood 08/29/2024 3:19 PM CDT 08/29/2024 7:31 PM CDT us Madhavi Lam NP LAB BLOOD ORDERABLES Final Re sult ABEBEMAYA PRIETO ([place]) 1 [facility] Department [place] [address] * Thyroid Function [place] (08/29/2024 3:19 PM CDT) TSH 1.53 0.30 - 4.20 mcIUnit/mL Comment:Testing performed by : [address], [address] Blood 08/29/2024 3:19 PM CDT 08/29/2024 7:31 PM CDT Madhavi Lam RADIO DISPATCHER LAB BLOOD ORDERABLES Final Re sult [facility] ([place]) [address] [facility] Department [place] [address] * (ABNORMAL) CBC with auto differential (08/29/2024 3:19 PM CDT) WBC 11.94(H) 3.80 - 9.90 K/cumm Comment:Testing performed by : [address], [address] Hgb 13.5 11.9 - 15.5 g/dL [facility] ([place]) Comment:Testing performed by : [address], [address] Hct 40.7 35.6 - 45.5 % [facility] ([place]) Comment:Testing performed by : [address], [address] Plt 137(L) 150 - 400 K/cumm [facility] ([place]) Comment:Testing performed by : [address], [address] MPV 11.3 9.1 - 12.3 fL [facility] ([place]) Comment:Testing performed by : [address], [address] RBC 4.28 3.90 - 5.20 M/cumm [facility] ([place]) Comment:Testing performed by : [address], [address] MCV 95.1 81.3 - 96.4 fL [facility] ([place]) Comment:Testing performed by : [address], [address] MCH 31.5 27.1 - 33.3 pg [facility] ([place]) Comment:Testing performed by : [address] [address] MCHC 33.2 32.3 - 35.7 g/dL LEATHA PRIETO ([place]) Comment:Testing performed by : [facility], [address] [place] [address]., [address] RDW CV 11.9 11.1 - 14.9 % LEATHA PRIETO ([place]) Comment:Testing performed by : [facility], [address] [place] [address], [address] RDW SD 40.9 35.7 - 48.1 fL LEATHA PRIETO ([place]) Comment:Testing performed by : [facility], [address] [place] [address], [address] NRBC abs 0.00 0.00 - 0.01 K/cumm LEATHA PRIETO ([place]) Comment:Testing performed by : [facility], [address] [place] [address], [id number] Blood 08/29/2024 3:19 PM CDT 08/29/2024 7:31 PM CDT Madhavi Lam NP LAB BLOOD ORDERABLES Final Re sult LEATHA PR[facility]O ([place]) 1 [facility] Department of Laboratories [place] [id number] * Hemoglobin A1c (08/29/2024 3:19 PM CDT) [facility] Hgb A1C 5.0 4.0 - 5.6 % Comment:Testing performed by : [address], [address] Estimated Average Glucose 97 mg/dL LEATHA PRIETO ([place]) Comment: The ADA recommends reporting an estimated Average Glucose (eAG) with all Hemoglobin A1c results using the equation derived from a study of 507 normal and diabetic adults. Minority populations were underrepresented and children were not included. (Diabetes Care 31:6535-4261, 2008). The eAG is not equivalent to a fasting glucose. Testing performed by: [address], [address] Blood 08/29/2024 3:19 PM CDT 08/29/2024 7:31 PM CDT us Madhavi Lam NP LAB BLOOD ORDERABLES Final Re sult LEATHA PRI[facility]O ([place]) 1 [facility] Department [place] [address] * (ABNORMAL) Lipid panel (08/29/2024 3:19 PM CDT) Cholesterol 179 30 - 199 mg/dL Comment: Interpretive Data Ages < or = 19 years Acceptable: <170 mg/dL Borderline high: 170-199 mg/dL High: >or= 200 mg/dL Ages > or = 20 years Desirable: <200 mg/dL Borderline high: 200-239 mg/dL High: >or= 240 mg/dL Literature References: 1. Expert Panel on Integrated Guidelines for Cardiovascular Health and Risk Reduction in Children and Adolescents. Pediatrics 2011;128:S213 2. NCEP Expert Panel. Circulation 2004;110:227 Current Interpretive Data was last revised on 2017. Testing performed by: [address] [address] Triglycerides 183(H) <=149 mg/dL LEATHA PRIETO ([place]) Comment: Interpretive Data Ages < or = 9 years Acceptable: <75 mg/dL Borderline high: 75-99 mg/dL High: >or= 100 mg/dL Ages 10 to 20 years Acceptable: <90 mg/dL Borderline high: 90-129 mg/dL High: >or= 130 mg/dL Ages > or = 20 years Desirable: <150 mg/dL Borderline high: 150-199 mg/dL High: 200-499 mg/dL Very high: >or= 499 mg/dL Literature References: 1. Expert Panel on Integrated Guidelines for Cardiovascular Health and Risk Reduction in Children and Adolescents. Pediatrics 2011;128:S213 2. NCEP Expert Panel. Circulation 2004;110:227 Current Interpretive Data was last revised on 2017. Testing performed by: [facility], [address] [place] [address]., [address] HDL 40 >=40 mg/dL LEATHA PRIETO ([place]) Comment: Interpretive Data Ages < or = 19 years Acceptable: >45 mg/dL Borderline low: 40-45 mg/dL Low: <40 mg/dL Ages > or = 20 years Desirable: >or= 60 mg/dL Low: <40 mg/dL Literature References: 1. Expert Panel on Integrated Guidelines for Cardiovascular Health and Risk Reduction in Children and Adolescents. Pediatrics 2011;128:S213 2. NCEP Expert Panel. Circulation 2004;110:227 Current Interpretive Data was last revised on 2017. Testing performed by: [facility], [address] [place] [address]., [address] LDL, calculated 107 <=129 mg/dL LEATHA PRIETO (KATERINE) Comment: Interpretive Data Ages < or = 19 years Acceptable: <110 mg/dL Borderline high: 110-129 mg/dL High: >or= 130 mg/dL Ages > or = 20 years Optimal: <100 mg/dL Near optimal: 100-129 mg/dL Borderline high: 130-159 mg/dL High: >160 mg/dL Calculated using the Scott LDL-C estimating equation. This equation was implemented on 2023. Prior to this date LDL-C was estimated using the Friedewald equation. Literature References: 1. Expert Panel on Integrated Guidelines for Cardiovascular Health and Risk Reduction in Children and Adolescents. Pediatrics 2011;128:S213 2. NCEP Expert Panel. Circulation 2004;110:227 3. Scott Torrez et al. COLEMAN Cardiol. 2019August 21;5(5):540-548. doi: 10.1001/[email or web address].2020.0013 Current Interpretive Data was last revised on 2023. Testing performed by: [facility], [address] [place] [address]., [address] Non-HDL Cholesterol 139 mg/dL LEATHA PRIETO (KATERINE) Comment: Interpretive Data Ages < or = 19 years Acceptable: <120 mg/dL Borderline high: 120-144 mg/dL High: >145 mg/dL Ages > or = 20 years When triglycerides are >200 mg/dL, Non-HDL cholesterol is a secondary target of therapy with treatment goals that are 30 mg/dL greater than the LDL cholesterol target. Literature References: 1. Expert Panel on Integrated Guidelines for Cardiovascular Health and Risk Reduction in Children and Adolescents. Pediatrics 2011;128:S213 2. NCEP Expert Panel. Circulation 2004;110:227 Current Interpretive Data was last revised on 2017. Testing performed by: [facility], [address] [place] [address]., [address] Chol/HDL ratio 4 ALEJANDRA Serrano CONNER (KATERINE) Comment:Testing performed by : [facility], [address] [place] [address]., [address] Blood 08/29/2024 3:19 PM CDT 08/29/2024 7:31 PM CDT Madhavi Lam RADIO DISPATCHER LAB BLOOD ORDERABLES Final Re sult LEATHA CONNER (KATERINE) 1 [facility] [place] [address] from Last 3 Months Insurance [email or web address] OOS [email or web address] Care Teams Mental Health Social Worker Relationship Specialty Start Date End Date Esther Rodrigues NP PCP - General Family Medicine 05/18/23
--- OUTSIDE RECORDS SUMMARY | 2024-09-16 15:23 | XMS_ITS | Referral Summary ---
Author Organization [facility] [address] [facility] Address [address] [place] [address] Care Team Providers Care Air Quality Chemist Name Role Phone Esther Rodrigues NP Primary Care Provider [phone] Encounters Date Type Department Care Team Description 09/02/2024 Results [facility] [address] [address] Madhavi Lam NP Lipid panel, CBC with auto differential, Hemoglobin A1c, Additional followed-up results: 2 09/01/2024 Telephone [facility] [address] [address] Esther Rodrigues NP Prior Authorization [employer] 08/29/2024 4:15 PM CDT Lab [facility] [address] [place] [address] Encounter for screening for lipid disorder; Weight loss counseling, encounter for; Diabetes mellitus screening; Thyroid disorder screening 08/29/2024 4:00 PM CDT Lab [facility] [address] [place] [address] 08/29/2024 3:30 PM CDT Office Visit [facility] [address] [address] Madhavi Lam NP Abdominal pain (Primary Dx); Weight loss counseling, encounter for; Mixed anxiety and depressive disorder; Chronic migraine without aura without status migrainosus, not intractable; Encounter for screening for lipid disorder; Thyroid disorder screening; Diabetes mellitus screening; Class 1 obesity due to excess calories with serious comorbidity and body mass index (BMI) of 34.0 to 34.9 in adult from Last 3 Months Allergies No known active allergies Medications levonorgestreL [...] days Assessment & Plan (04/15/2024 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 Discussed medication side-effects and warning signs. Acute non-recurrent maxillary sinusitis 04/15/20 Assessment & Plan (04/15/2024 11:44 AM CITY PLANNING TEACHER): Will watch and wait. Advised OTC cold [...] exercise. Assessment & Plan (04/15/2024 11:30 AM CITY PLANNING TEACHER): Encouraged heart healthy diet and lifestyle. Advised [...] Head ache 09/08/2016 01/21/2024 Vitamin deficiency 09/08/2016 Immunizations Immunization Administration Dates Next Due DTaP [...] Meningococcal MCV4P (Menactra) 11/21/2010 Pneumococcal Conjugate 7-Valent 11/08/19,01/31/2000,1999,09/28 Tdap 01/16/2020,11/21/2010 Social History Tobacco Use Types Packs/Day Years Used Date Smoking Tobacco: Every Day Vaping Tobacco Cessation:Ready to Q uit: Not Asked; Counseling Given: Not Answered [facility] Utilities Answer Date Recorded In the past 12 months has e Reactivity, [employer], oil, or water [employer] threatened to shut off services in your [...] week 01/21/2024 How often do you attend episcopal or lutheran serv ices? Never 01/21/2024 Do you belong to any clubs o r organizations such as episcopal groups, unions, fraternal or athletic groups, or [...] staff should administer the PHQ-9) 0 08/29/2024 [facility] Occupat ional Health - Occupational Stress [...] any time in the past 12 m [facility], were you homeless or living in a chcf (including now)? No 01/21/2024 Comments Unknown Sex and Gender Information Value Date Recorded Sex Assigned at Not on file Legal Sex Female 2:19 PM CITY PLANNING TEACHER Gender Identity Female 10/25/2022 10:05 AM CDT Sexual Orientation Not on file Last Filed Vital Signs Vital Sign Reading Time Taken Comments Blood Pressure 122/72 08/29/2024 2:52 PM CDT Pulse 108 08/29/2024 2:52 PM CDT Temperature 37.2 C (98.9 F) 04/15/2024 11:32 AM CITY PLANNING TEACHER Respiratory Rate 18 08/29/2024 2:52 PM CDT Oxygen Saturation 98% 08/29/2024 2:52 PM CDT Inhaled Oxygen Concentration - - Weight 88.7 kg (195 lb 9.6 oz) 08/29/2024 2:52 P M CDT Height 157.5 cm (5' 2.01 ) 08/29/2024 2:52 PM CD T Body Mass Index 35.77 08/29/2024 2:52 PM CDT Plan of Treatment Not on file Procedures Procedure Name Priority Date/Time Associated Diagnosis [...] testing for HIV-1 RNA. Testing performed by: , [address] [place] [address], [place]., [address] Blood 08/29/2024 3:21 PM CDT 08/29/2024 3:23 PM CDT us Zay Henry MD LAB MICROBIOLOGY - GENERAL ORDERABLES Final Result LEATHA CONNER (KATERINE) 1 [facility] [place] [address] * Hepatitis panel, acute Blood (08/29/2024 3:21 PM CDT) Hep A IgM Nonreactive Nonreactive Comment: Interpretive Data: If Hep A IgM Ab is reported as Equivocal, a new sample should be drawn in two weeks for testing. Current interpretive data was last revised on 19. Testing performed by: [address] [address] Hep B core IgM Nonreactive Nonreactive Jihan PRIETO (KATERINE) Comment: Interpretive Data If HepB Core IgM Ab is reported as Equivocal, a new sample should be drawn in two weeks for testing. Current interpretive data was last revised on 19. Testing performed by: [address] [address] Hep C Ab Nonreactive Nonreactive LEATHA PRIETO [...] last revised on 2019. Testing performed by: [address] [address] HepBsAg Nonreactive Nonreactive LEATHA PRIETO (KATERINE) Comment:Testing performed by : [address] [address] Blood 08/29/2024 3:21 PM CDT 08/29/2024 3:23 PM CDT Zay Henry MD LAB MICROBIOLOGY - GENERAL ORDERABLES Final Result Performing Organization Address City/[facility] Co de Phone Number [facility] (CROCKETT) [address] [place] [address] * (ABNORMAL) HSV 2 IgG Antibody Blood (08/29/2024 3:21 PM CDT) HSV 2 IgG Reactive( A) Nonreactive Comment: Interpretive Data 1. Nonreactive: No detectable IgG antibody to HSV-2. 2. Equivocal: Presence or absence of detectable antibodies to HSV-2 cannot be determined and the test should be repeated. 3. Reactive: Indicates presence of detectable IgG antibody to HSV-2. Current interpretive data was last revised on 2022. Testing performed by: [facility], [address] [place] [address]., [address] Blood 08/29/2024 3:21 PM CDT 08/29/2024 9:38 PM CDT Zay Henry MD LAB MICROBIOLOGY - GENERAL ORDERABLES Final Result Performing Organization Address City/[facility] Co de Phone Number [facility] ([place]) [address] [place] [address] [place] [address] * (ABNORMAL) HSV 1 IgG Antibody Blood [...] last revised on 2016. Testing performed by: [facility], [address] [place] [address], [place]., [address] Blood 08/29/2024 3:21 PM CDT 08/29/2024 9:38 PM CDT Zay Henry MD LAB MICROBIOLOGY - GENERAL ORDERABLES Final Result LEATHA PRIETO (CROCKETT) 1 [facility] [place] [address] * RPR Blood (08/29/2024 3:21 PM CDT) RPR Nonreactive Nonreactive Comment:Testing performed by : , [address] [place] [address], [address] Blood 08/29/2024 3:21 PM CDT 08/29/2024 3:23 PM CDT Zay Henry MD LAB MICROBIOLOGY - GENERAL ORDERABLES Final Result Performing Organization Address City/[facility] Co de Phone Number LEATHA PRIETO (CROCKETT) 1 [facility] [place] [address] * (ABNORMAL) Differential, auto (08/29/2024 3:19 PM CDT) Neutrophil abs 7.95(H) 1.50 - 6.50 K/cumm Comment:Testing performed by : , [address] [place] [address], [address] Imm gran abs 0.03 0.00 - 0.10 K/cumm [facility] (KATERINE) Comment:Testing performed by : [address], [address] Lymphocyte abs 3.17 0.80 - 3.30 K/cumm [facility] (KATERINE) Comment:Testing performed by : , [address] [place] [address], [address] Monocyte abs 0.70 0.20 - 0.80 K/cumm [facility] (KATERINE) Comment:Testing performed by : [address], [address] Eosinophil abs 0.05 0.00 - 0.50 K/cumm [facility] (KATERINE) Comment:Testing performed by : [address], [address] Basophil abs 0.04 0.00 - 0.10 K/cumm [facility] (KATERINE) Comment:Testing performed by : [address] [address] Neutrophil pct 66.6 % CERNE R [facility] (KATERINE) Comment: Interpretive Data Percent cell count reference ranges are not reported, since discordance with absolute values may lead to misinterpretation of CBC data. Current Interpretive Data was last revised on 2017. Testing performed by: [address] [address] Imm gran pct 0.3 % [facility] (KATERINE) Comment: Interpretive Data Percent cell count reference ranges are not reported, since discordance with absolute values may lead to misinterpretation of CBC data. Current Interpretive Data was last revised on 2017. Testing performed by: [address] [address] Lymphocyte pct 26.5 % [facility]NE R [facility] (KATERINE) Comment: Interpretive Data Percent cell count reference ranges are not reported, since discordance with absolute values may lead to misinterpretation of CBC data. Current Interpretive Data was last revised on 2017. Testing performed by: [address] [address] Monocyte pct 5.9 % [facility] (KATERINE) Comment: Interpretive Data Percent cell count reference ranges are not reported, since discordance with absolute values may lead to misinterpretation of CBC data. Current Interpretive Data was last revised on 2017. Testing performed by: [address] [address] Eosinophil pct 0.4 % [facility] R [facility] (KATERINE) Comment: Interpretive Data Percent cell count reference ranges are not reported, since discordance with absolute values may lead to misinterpretation of CBC data. Current Interpretive Data was last revised on 2017. Testing performed by: [address] [address] Basophil pct 0.3 % [facility] (KATERINE) Comment: Interpretive Data Percent cell count reference ranges are not reported, since discordance with absolute values may lead to misinterpretation of CBC data. Current Interpretive Data was last revised on 2017. Testing performed by: [address] [address] Blood 08/29/2024 3:19 PM CDT 08/29/2024 7:31 PM CDT Madhavi Lam NP LAB BLOOD ORDERABLES Final Re sult Performing Organization Address [facility]/ZIP Co de Phone Number LEATHA PRIETO (KATERINE) 1 [place] [address] * Thyroid Function [place] (08/29/2024 3:19 PM CDT) TSH 1.53 0.30 - 4.20 mcIUnit/mL Comment:Testing performed by : [address], [address] Blood 08/29/2024 3:19 PM CDT 08/29/2024 7:31 PM CDT Madhavi Lam NP LAB BLOOD ORDERABLES Final Re sult Performing Organization Address [facility] Co de Phone Number LEATHA [facility] (KATERINE) 1 [place] [address] * (ABNORMAL) CBC with auto differential (08/29/2024 3:19 PM CDT) WBC 11.94(H) 3.80 - 9.90 K/cumm Comment:Testing performed by : [address] [address] Hgb 13.5 11.9 - 15.5 g/dL ABEBENER [facility] (KATERINE) Comment:Testing performed by : [address] [address] Hct 40.7 35.6 - 45.5 % [facility] (KATERINE) Comment:Testing performed by : [address] [address] Plt 137(L) 150 - 400 K/cumm [facility] (KATERINE) Comment:Testing performed by : [address], [address] MPV 11.3 9.1 - 12.3 fL [facility] (KATERINE) Comment:Testing performed by : , [address] [place] [address], [address] RBC 4.28 3.90 - 5.20 M/cumm [facility] (KATERINE) Comment:Testing performed by : , [address] [place] [address], [address] MCV 95.1 81.3 - 96.4 fL [facility] (KATERINE) Comment:Testing performed by : , [address] [place] [address], [address] MCH 31.5 27.1 - 33.3 pg [facility] (KATERINE) Comment:Testing performed by : , [address] [place] [address], [address] MCHC 33.2 32.3 - 35.7 g/dL [facility] (KATERINE) Comment:Testing performed by : [address], [address] RDW CV 11.9 11.1 - 14.9 % [facility] (KATERINE) Comment:Testing performed by : [address], [address] RDW SD 40.9 35.7 - 48.1 fL [facility] (AKTERINE) Comment:Testing performed by : [address], [address] NRBC abs 0.00 0.00 - 0.01 K/cumm [facility] (KATERINE) Comment:Testing performed by : [address], [address] Blood 08/29/2024 3:19 PM CDT 08/29/2024 7:31 PM CDT us Madhavi Lam NP LAB BLOOD ORDERABLES Final Re sult ABEBEMAYA [facility] (KATERINE) 1 [facility] [place] [address] * Hemoglobin A1c (08/29/2024 3:19 PM CDT) [facility] Hgb A1C 5.0 4.0 - 5.6 % Comment:Testing performed by : , [address] [place] [address]., [address] Estimated Average Glucose 97 mg/dL LEATHA PRIETO (KATERINE) Comment: The ADA recommends reporting an estimated Average Glucose (eAG) with all Hemoglobin A1c results using the equation derived from a study of 507 normal and diabetic adults. Minority populations were underrepresented and children were not included. (Diabetes Care 31:3379-7736, 2008). The eAG is not equivalent to a fasting glucose. Testing performed by: , [address] [place] [address]., [address] Blood 08/29/2024 3:19 PM CDT 08/29/2024 7:31 PM CDT Madhavi Lam NP LAB BLOOD ORDERABLES Final Re sult LEATHA PRIETO (KATERINE) 1 [facility] [place] [address] * (ABNORMAL) Lipid panel (08/29/2024 3:19 PM [...] last revised on 2017. Testing performed by: , [address] [place] [address], [place]., [address] Triglycerides 183(H) <=149 mg/dL LEATHA PRIETO (KATERINE) [...] last revised on 2017. Testing performed by: , [address] [place] [address]., [address] HDL 40 >=40 mg/dL LEATHA PRIETO (KATERINE) [...] last revised on 2017. Testing performed by: , [address] [place] [address]., [address] LDL, calculated 107 <=129 mg/dL LEATHA PRIETO [...] NCEP Expert Panel. Circulation 2004;110:227 3. Scott Weber al. COLEMAN Cardiol. 2019August 21;5(5):540-548. doi: 10.1001/[email or web address].2020.0013 Current Interpretive Data was last revised on 2023. Testing performed by: , [address] [place] [address]., [address] Non-HDL Cholesterol 139 mg/dL LEATHA PRIETO (KATERINE) [...] last revised on 2017. Testing performed by: , [address] [place] [address]., [address] Chol/HDL ratio 4 ALEJANDRA PRIETO (KATERINE) Comment:Testing performed by : [address] [address] Blood 08/29/2024 3:19 PM CDT 08/29/2024 7:31 PM CDT Madhavi Lam NP LAB BLOOD ORDERABLES Final Re sult LEATHA CONNER (KATERINE) 1 [facility] [place] [address] from Last 3 Months Insurance [facility] OOS [facility] CHOICE OOS IDPA Care Teams Air Quality Chemist Relationship Specialty Start Date End Date Esther Rodrigues NP PCP - General Family Medicine 05/18/23
--- OUTSIDE RECORDS SUMMARY | 2024-09-16 15:23 | XMS_ITS | Encounter Summary ---
Author Organization [facility] Address [address] [place] [address] Care Team Providers Care Acquisitions Analyst Name Role Phone Esther Rodrigues NP Primary Care Provider [phone] Encounter Details Date Type Department Care Team (Late st Contact Info) Description 09/02/2024 Results [facility]Up [facility] [place] [address] [place] [address] Madhavi Lam, TELLO [address] [place] [address] Lipid panel, CBC with auto differential, Hemoglobin A1c, Additional followed-up results: 2 Social History Tobacco Use Types Packs/Day Years Used Date Smoking Tobacco: Every Day Vaping [facility] Utilities Answer Date Recorded In the past 12 months has [facility] electric, gas, oil, or water [employer] threatened to shut off services in your [...] week 01/21/2024 How often do you attend amish or samaritan serv ices? Never 01/21/2024 Do you belong to any clubs o r organizations such as amish groups, unions, fraternal or athletic groups, or [...] staff should administer the PHQ-9) 0 08/29/2024 [facility] of Occupat ional Health - [...] any time in the past 12 m [facility], were you homeless or living in a jail (including now)? 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 documented in this encounter Plan of Treatment Not on file documented as of this encounter Visit Diagnoses Not on filedocumented in this encounter Care Teams Acquisitions Analyst Relationship Specialty Start Date End Date Esther Rodrigues NP PCP - General Family Medicine 05/18/23 documented as of this encounter
--- OUTSIDE RECORDS SUMMARY | 2024-09-16 15:23 | XMS_ITS | Clinical Summary ---
Author Organization [facility] Address [address] [place] [address] Care Team Providers Care Oil Field Roustabout Name Role Phone Unavailable Primary Care Provider Unavailabl e Source Comments [facility],non-owned Affiliates and Associated Physician Practices is amultiple site organization consisting of ambulatory clinics and hospital sitesin [place], [place], [place] and [place]. This disclosure is being madepursuant to the Care Everywhere program and may not contain all information available regarding this patient. Last updated 18.[facility] Allergies Active Allergy Reactions Criticality Noted Date Comments Codeine 09/12/2016 Hydrocodone 09/12/2016 Medications * Be aware that medications may not be up to date on this document. Alwaysverify current medications with the patient. norethindrone-et hinyl estradiol (LOESTRIN 1.5/30) 1.5-30 MG-MCG tablet Take 1 Tab by mouth once daily Active ibuprofen (ADVIL) 200 MG tablet Take 600 mg by mouth every 6 hours as needed for Pain Active gabapentin (NEURONTIN) 100 MG capsule Take 2 Caps by mouth 2 times daily 120 Cap 4 09/12/2016 Active Active Problems Problem Noted Date Diagnosed Date Vitamin deficiency 09/08/2016 Head ache 09/08/2016 Social History Tobacco Use Types Packs/Day Years Used Date Smoking Tobacco: Never Smokeless Tobacco: Never Comments No Sex and Gender Information Value Date Recorded Sex Assigned at Not on file Legal 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 Gender Identity Not on file Sexual Orientation Not on file Last Filed Vital Signs Vital Sign Reading Time Taken Comments Blood Pressure 118/70 09/12/2016 2:20 PM CDT Pulse 86 12/14/2010 11:30 AM CDT Temperature 37.4 C (99.4 F) 12/14/2010 11:30 AM CDT Respiratory Rate 22 12/14/2010 11:30 AM CDT Oxygen Saturation 98% 12/13/2010 7:35 PM CDT Inhaled Oxygen Concentration - - Weight 62 kg (136 lb 11 oz) 09/12/2016 2:20 PM C DT Height 159 cm (5' 2.6 ) 09/12/2016 2:20 PM CDT Body Mass Index 24.52 09/12/2016 2:20 PM CDT Plan of Treatment Health Maintenance Due Date Last Done Comments PAP SMEAR 1999 HIV SCREENING 07/28/2014 HPV VACCINE (1 - 3-dose series) 07/28/2014 CHLAMYDIA/GONORRHEA SCREENING 2015 HEPATITIS C SCREENING 07/24/2017 DTAP/TDAP/TD VACCINES (1 - Tdap) 07/28/2018 HEPATITIS B VACCINE (1 of 3 - 19+ 3-dose series) 07/28/2018 COVID-19 VACCINE (1 - 2023-2 5 season) 2023 DEPRESSION SCREENING 04/23/2024 INFLUENZA VACCINE (Season Ended) 2024 ZOSTER VACCINE (1 of 2) 07/28/2049 HIB VACCINE Aged Out No longer eligi ble based on patient's age to complete this topic MENINGOCOCCAL (Group B) VACC INE SHARED DECISION-MAKING Aged Out No longer eligibl e based on patient's age to complete this topic MENINGOCOCCAL GROUPS A/C/Y/W VACCINE Aged Out No longer eligible b ased on patient's age to complete this topic PNEUMOCOCCAL VACCINE Aged Out No long er eligible based on patient's age to complete this topic Insurance [facility] ANTH ANTHEM
[2024-09-16 16:04] LABS: Hematocrit 39.6 % (37.0-47.0); Hemoglobin 13.5 g/dL (12.0-15.0); Mean Corpuscular HGB Conc 34.1 g/dl (32-36); Mean Corpuscular Hemoglobin 31.5 pg (26-34); Mean Corpuscular Volume 92.3 fl (80-100); Mean Platelet Volume 10.2 fl (7.4-10.4); Platelet Count Result 329 k/mm3 (150-375); Red Blood Count 4.29 M/mm3 (4.2-5.4); Red Cell Distribution Width 11.8 % (11.5-14.5); White Blood Count 13.3 K/mm3 (4.5-10.0)
[2024-09-16 16:52] LABS: Syphilis IgG/IgM Antibody Negative (Negative)
== END 2024-09-16 15:19 | disposition home or self-care (01) ==
LOC: ANHSURGERY 15:21
PROVIDERS: PCP Nurse Practitioner; Visit Provider Obstetrics & Gynecology
DX: Z30.432 Encounter for removal of intrauterine contraceptive device (principal)
CPT/HCPCS: 36415; 85027; 86593

== ENCOUNTER 2024-09-18 03:25 | Day surgery (SDC) | payer BC, MEDICAID, SELFPAY ==
[2024-09-11 14:53] VITALS: BMI 34.7
--- NOTE | 2024-09-11 15:01 | PC.NURSE ---
Report to the Outpatient Waiting Room, entrance under the green pavilion located off [facility], at time _0830_ on date _[id number]_. Planned Procedure Time: _1030_.? Time changes happen often and if your time is changed the preop area will call you the afternoon before. - You and your visitor will be asked to self-screen and do not enter if you have any COVID symptoms. Please call surgeon if you need to reschedule. - A mask is optional within the hospital at this time. Patients may have clear liquids (water, carbonated beverages, clear teas, apple juice) until 3 hours prior to surgery with a maximum of 20 ounces. - No food from midnight until time of surgery and no smoking, or chewing tobacco (or any form of nicotine). No chewing gum, candy or mints. Take only the following medications with a SIP of water on the morning of surgery: ___None____ DO NOT STOP ANY OF YOUR OTHER PRESCRIPTION MEDICATIONS PRIOR TO SURGERY EXCEPT THE FOLLOWING Hold all vitamins and supplements for 3 days per anesthesiologist. Medications to discontinue per physician ___Zepbound, hold dose scheduled for 09-16-2024 until after surgery.____ Date to take last dose Please no make-up, nail kinyarwanda, hairspray, perfume, deodorant, or body powder the day of surgery.? No jewelry (including any body piercings) or valuables the day of surgery, leave them at home.? Please take a shower or bath the night before, or the morning of, surgery with an antibacterial soap.? Wear comfortable, loose fitting clothing.? - Jewelry must be removed prior to entering the operating room.? Rings and piercings that are not removed may be cut off. - The hospital will not accept responsibility for valuables.? - Please leave all valuables, including medications, at home the day of surgery. If you are going home after surgery, a licensed stock car driver must drive you home.? - NO public transportation without another adult if you receive anesthesia. - We recommend that an adult stay with you for 24 hours following discharge. - We also recommend that you do not drive, make important decision, drink alcoholic beverages, or take any drugs that were not prescribed by your health care provider for at least 24 hours after your discharge time. Follow any additional instructions given to you from your surgeon. Telephone instructions given to __Augustina___and asked if any additional questions and then verbalized understanding. Patient advised to call surgeon office or pre surgery nurse liaison [phone] if any additional questions.
--- OUTSIDE RECORDS SUMMARY | 2024-09-18 03:28 | XMS_ITS | Encounter Summary ---
Author Organization [facility] Healthcare Address [address] [place] [address] Care Team Providers Care Account Support Manager Name Role Phone Esther Rodrigues NP Primary Care Provider [phone] Encounter Details Date Type Department Care Team (Late st Contact Info) Description 09/02/2024 Results [facility]Up [facility] [place] [address] [place] [address] Madhavi aLm, TELLO [address] [place] [address] Lipid panel, CBC with auto differential, Hemoglobin A1c, Additional followed-up results: 2 Social History Tobacco Use Types Packs/Day Years Used Date Smoking Tobacco: Every Day Vaping [facility] Utilities Answer Date Recorded In the past 12 months has [facility] electric, gas, oil, or water [employer] threatened to shut off services in your [...] week 01/21/2024 How often do you attend islam or anglican serv ices? Never 01/21/2024 Do you belong to any clubs o r organizations such as islam groups, unions, fraternal or athletic groups, or [...] staff should administer the PHQ-9) 0 08/29/2024 [facility] of Occupat ional Health - Occupational Stress [...] any time in the past 12 m [facility], were you homeless or living in a long term (including now)? 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
--- OUTSIDE RECORDS SUMMARY | 2024-09-18 03:28 | XMS_ITS | Clinical Summary ---
Author Organization [facility] Address [address] [place] [address] Care Team Providers Care Chemical Lab Supervisor Name Role Phone Unavailable Primary Care Provider Unavailabl e Source Comments [facility],non-owned Affiliates and Associated Physician Practices is amultiple site organization consisting of ambulatory clinics and hospital sitesin [place], [place], [place] and [place]. This disclosure is being madepursuant to the Care Everywhere program and may not contain all information available regarding this patient. Last updated 18.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
--- OUTSIDE RECORDS SUMMARY | 2024-09-18 03:28 | XMS_ITS | Clinical Summary ---
Author Organization [address] Address [address] [place] [address] Care Team Providers Care Pipe Covering Molder Name Role Phone Esther Rodrigues NP Primary Care Provider [phone] Allergies No known active allergies Medications levonorgestreL [...] days Assessment & Plan (04/15/2024 11:42 AM PROCESSING SPECIALIST): Will trial Phentermine. Discussed medication side-effects and warning signs. Acute non-recurrent maxillary sinusitis 04/15/20 Assessment & Plan (04/15/2024 11:44 AM PROCESSING SPECIALIST): Will watch and wait. Advised OTC cold [...] exercise. Assessment & Plan (04/15/2024 11:30 AM PROCESSING SPECIALIST): Encouraged heart healthy diet and lifestyle. Advised [...] Description 09/02/2024 Results [facility] [address] [phone] Madhavi Lam NP Lipid panel, CBC with auto differential, Hemoglobin A1c, Additional followed-up results: 2 09/01/2024 Telephone [facility] [address] [phone] Esther Rodrigues NP Prior Authorization [employer] 08/29/2024 4:15 PM CDT Lab [facility] [address] [place] [phone] Encounter for screening for lipid disorder; Weight loss counseling, encounter for; Diabetes mellitus screening; Thyroid disorder screening 08/29/2024 4:[address] [facility] [address] [place] [phone] 08/29/2024 3:30 PM CDT Office Visit [facility] [address] [phone] Madhavi Lam NP Abdominal pain (Primary Dx); [...] Asked; Counseling Given: Not Answered [facility] Utilities Answer Date Recorded In the past 12 months has th e electric, gas, oil, or water [employer] threatened to shut off services in your [...] week 01/21/2024 How often do you attend anglican or mu-ism serv ices? Never 01/21/2024 Do you belong to any clubs o r organizations such as anglican groups, unions, fraternal or athletic groups, or [...] staff should administer the PHQ-9) 0 08/29/2024 [facility] [place] Occupat ional Health - Occupational Stress [...] any time in the past 12 m [facility], were you homeless or living in a fci (including now)? No 01/21/2024 Comments Unknown Sex and Gender Information Value Date Recorded Sex Assigned at Not on file Legal Sex Female 2:19 PM PROCESSING SPECIALIST Gender Identity Female 10/25/2022 10:05 AM CDT Sexual Orientation Not on file Obstetrics History Last Filed Vital Signs Vital Sign Reading Time Taken Comments Blood Pressure 122/72 08/29/2024 2:52 PM CDT Pulse 108 08/29/2024 2:52 PM CDT Temperature 37.2 C (98.9 F) 04/15/2024 11:32 AM PROCESSING SPECIALIST Respiratory Rate 18 08/29/2024 2:52 PM CDT Oxygen Saturation 98% 08/29/2024 2:52 PM CDT Inhaled Oxygen Concentration - - Weight 88.7 kg (195 lb 9.6 oz) 08/29/2024 2:52 P M CDT Height 157.5 cm (5' 2.01) 08/29/2024 2:52 PM CD T Body Mass [...] testing for HIV-1 RNA. Testing performed by: [facility], [address] [place] [address]., [id number] Blood 08/29/2024 3:21 PM CDT 08/29/2024 3:23 PM CDT us Zay Henry MD LAB MICROBIOLOGY - GENERAL ORDERABLES Final Result LEATHA PRIETO NOBLE) 2 [facility] [place] Department [place] [address] * Hepatitis panel, acute Blood (08/29/2024 3:21 PM CDT) Hep A IgM Nonreactive Nonreactive Comment: Interpretive Data: If Hep A IgM Ab is reported as Equivocal, a new sample should be drawn in two weeks for testing. Current interpretive data was last revised on 19. Testing performed by: [facility], [address] [place] [address]., [id number] Hep B core IgM Nonreactive Nonreactive Jihan PRIETO (KATERINE) Comment: Interpretive Data If HepB Core IgM Ab is reported as Equivocal, a new sample should be drawn in two weeks for testing. Current interpretive data was last revised on 19. Testing performed by: [facility], [address] [place] [address]., [id number] Hep C Ab Nonreactive Nonreactive LEATHA PRIETO [...] last revised on 2019. Testing performed by: [facility], [address] [place] [address]., [id number] HepBsAg Nonreactive Nonreactive LEATHA PRIETO (KATERINE) Comment:Testing performed by : [address] [id number] Blood 08/29/2024 3:21 PM CDT 08/29/2024 3:23 PM CDT us Zay Henry MD LAB MICROBIOLOGY - GENERAL ORDERABLES Final Result LEATHA PRIETO (KATERINE) 1 [facility] Department [place] [address] * (ABNORMAL) HSV 2 IgG Antibody Blood (08/29/2024 3:21 PM CDT) [facility] HSV 2 IgG Reactive( A) Nonreactive Comment: Interpretive Data 1. Nonreactive: No detectable IgG antibody to HSV-2. 2. Equivocal: Presence or absence of detectable antibodies to HSV-2 cannot be determined and the test should be repeated. 3. Reactive: Indicates presence of detectable IgG antibody to HSV-2. Current interpretive data was last revised on 2022. Testing performed by: [facility], [address] [facility], [place]., [address] Blood 08/29/2024 3:21 PM CDT 08/29/2024 9:38 PM CDT Zay Henry MD LAB MICROBIOLOGY - GENERAL ORDERABLES Final Result Performing Organization Address City/[facility]/ZIP Co de Phone Number [facility] ([place]) 1 [facility] [place] [address] * (ABNORMAL) HSV 1 IgG Antibody Blood [...] last revised on 2016. Testing performed by: [facility], [address] [facility], [place]., [address] Blood 08/29/2024 3:21 PM CDT 08/29/2024 9:38 PM CDT us Zay Henry MD LAB MICROBIOLOGY - GENERAL ORDERABLES Final Result Performing Organization Address City/[facility] Co de Phone Number [facility] ([place]) 1 [facility] [place] [address] * RPR Blood (08/29/2024 3:21 PM CDT) RPR Nonreactive Nonreactive Comment:Testing performed by : [facility], [address] [place] [address], [place]., [address] Blood 08/29/2024 3:21 PM CDT 08/29/2024 3:23 PM CDT us Zay Henry MD LAB MICROBIOLOGY - GENERAL ORDERABLES Final Result [facility] ([place]) 1 [facility] Department [place] [address] * (ABNORMAL) Differential, auto (08/29/2024 3:19 PM CDT) Neutrophil abs 7.95(H) 1.50 - 6.50 K/cumm Comment:Testing performed by : [facility], [address] [place] [address], [address] Imm gran abs 0.03 0.00 - 0.10 K/cumm [facility] ([place]ATERINE) Comment:Testing performed by : [address], [address] Lymphocyte abs 3.17 0.80 - 3.30 K/cumm [facility] ([place]) Comment:Testing performed by : [address], [address] Monocyte abs 0.70 0.20 - 0.80 K/cumm [facility] ([place]) Comment:Testing performed by : [facility], [address] [place] [address], [address] Eosinophil abs 0.05 0.00 - 0.50 K/cumm [facility] ([place]) Comment:Testing performed by : [address] [address] Basophil abs 0.04 0.00 - 0.10 K/cumm [facility] ([place]) Comment:Testing performed by : [address], [address] Neutrophil pct 66.6 % [facility] R [facility] ([place]) Comment: Interpretive Data Percent cell count reference ranges are not reported, since discordance with absolute values may lead to misinterpretation of CBC data. Current Interpretive Data was last revised on 2017. Testing performed by: [address], [address] Imm gran pct 0.3 % [facility] ([place]) Comment: Interpretive Data Percent cell count reference ranges are not reported, since discordance with absolute values may lead to misinterpretation of CBC data. Current Interpretive Data was last revised on 2017. Testing performed by: [facility], [address] [place] [address]., [address] Lymphocyte pct 26.5 % [facility] ([place]) Comment: Interpretive Data Percent cell count reference ranges are not reported, since discordance with absolute values may lead to misinterpretation of CBC data. Current Interpretive Data was last revised on 2017. Testing performed by: [facility], [address] [place] [address]., [address] Monocyte pct 5.9 % [facility] ([place]) Comment: Interpretive Data Percent cell count reference ranges are not reported, since discordance with absolute values may lead to misinterpretation of CBC data. Current Interpretive Data was last revised on 2017. Testing performed by: [facility], [address] [place] [address]., [address] Eosinophil pct 0.4 % [facility] ([place]) Comment: Interpretive Data Percent cell count reference ranges are not reported, since discordance with absolute values may lead to misinterpretation of CBC data. Current Interpretive Data was last revised on 2017. Testing performed by: [facility], [address] [place] [address]., [address] Basophil pct 0.3 % [facility] ([place]) Comment: Interpretive Data Percent cell count reference ranges are not reported, since discordance with absolute values may lead to misinterpretation of CBC data. Current Interpretive Data was last revised on 2017. Testing performed by: [address] [address] Blood 08/29/2024 3:19 PM CDT 08/29/2024 7:31 PM CDT us Madhavi Lam NP LAB BLOOD ORDERABLES Final Re sult ABEBEMAYA PRIETO (KATERINE) 1 [facility] Department [place] [address] * Thyroid Function Villalba (08/29/2024 3:19 PM CDT) TSH 1.53 0.30 - 4.20 mcIUnit/mL Comment:Testing performed by : [address], [address] Blood 08/29/2024 3:19 PM CDT 08/29/2024 7:31 PM CDT Madhavi Lam MANAGER LAUNDRY LAB BLOOD ORDERABLES Final Re sult [facility] ([place]) 1 [facility] Department [place] [address] * (ABNORMAL) CBC with auto differential (08/29/2024 3:19 PM CDT) WBC 11.94(H) 3.80 - 9.90 K/cumm Comment:Testing performed by : [address], [address] Hgb 13.5 11.9 - 15.5 g/dL [facility] ([place]) Comment:Testing performed by : [address], [address] Hct 40.7 35.6 - 45.5 % [facility] ([place]) Comment:Testing performed by : [address], [address] Plt 137(L) 150 - 400 K/cumm [facility] ([place]) Comment:Testing performed by : [address], [address] MPV 11.3 9.1 - 12.3 fL [facility] ([place]) Comment:Testing performed by : [address], [address] RBC 4.28 3.90 - 5.20 M/cumm [facility] ([place]) Comment:Testing performed by : [address], [address] MCV 95.1 81.3 - 96.4 fL [facility] ([place]) Comment:Testing performed by : [address], [address] MCH 31.5 27.1 - 33.3 pg [facility] ([place]) Comment:Testing performed by : [address] [address] MCHC 33.2 32.3 - 35.7 g/dL LEATHA PRIETO (KATERINE) Comment:Testing performed by : [facility], [address] [place] [address]., [address] RDW CV 11.9 11.1 - 14.9 % LEATHA PRIETO (KATERINE) Comment:Testing performed by : [facility], [address] [place] [address], [address] RDW SD 40.9 35.7 - 48.1 fL LEATHA PRIETO (KATERINE) Comment:Testing performed by : [facility], [address] [place] [address], [address] NRBC abs 0.00 0.00 - 0.01 K/cumm LEATHA PRIETO (KATERINE) Comment:Testing performed by : [facility], [address] [place] [address], [address] Blood 08/29/2024 3:19 PM CDT 08/29/2024 7:31 PM CDT Madhavi Lam NP LAB BLOOD ORDERABLES Final Re sult LEATHA PRIETO (NOBLE) 1 [facility] Department of Laboratories [place] [id number] * Hemoglobin A1c (08/29/2024 3:19 PM CDT) [facility] Hgb A1C 5.0 4.0 - 5.6 % Comment:Testing performed by : [address], [address] Estimated Average Glucose 97 mg/dL LEATHA PRIETO (KATERINE) Comment: The ADA recommends reporting an estimated Average Glucose (eAG) with all Hemoglobin A1c results using the equation derived from a study of 507 normal and diabetic adults. Minority populations were underrepresented and children were not included. (Diabetes Care 31:3530-9752, 2008). The eAG is not equivalent to a fasting glucose. Testing performed by: [address], [address] Blood 08/29/2024 3:19 PM CDT 08/29/2024 7:31 PM CDT us Madhavi Lam NP LAB BLOOD ORDERABLES Final Re sult LEATHA PRIETO (KATERINE) 1 [facility] Department [place] [address] * (ABNORMAL) Lipid panel (08/29/2024 3:19 PM [...] last revised on 2017. Testing performed by: [address] [address] Triglycerides 183(H) <=149 mg/dL LEATHA PRIETO (KATERINE) [...] last revised on 2017. Testing performed by: [facility], [address] [place] [address]., [address] HDL 40 >=40 mg/dL LEATHA PRIETO (KATERINE) [...] last revised on 2017. Testing performed by: [facility], [address] [place] [address]., [address] LDL, calculated 107 <=129 mg/dL LEATHA PRIETO [...] last revised on 2023. Testing performed by: [facility], [address] [place] [address]., [address] Non-HDL Cholesterol 139 mg/dL LEATHA PRIETO (KATERINE) [...] last revised on 2017. Testing performed by: [facility], [address] [place] [address]., [address] Chol/HDL ratio 4 ALEJANDRA Serrano CONNER (KATERINE) Comment:Testing performed by : [facility], [address] [place] [address]., [id number] Blood 08/29/2024 3:19 PM CDT 08/29/2024 7:31 PM CDT Madhavi Lam MANAGER LAUNDRY LAB BLOOD ORDERABLES Final Re sult LEATHA CONNER (KATERINE) 1 [facility] Department [place] [address] from Last 3 Months Insurance [employer] Care Teams Pipe Covering Molder Relationship Specialty Start Date End Date Esther Rodrigues NP PCP - General Family Medicine 05/18/23
--- OUTSIDE RECORDS SUMMARY | 2024-09-18 03:28 | XMS_ITS | Referral Summary ---
Author Organization [facility] [address] [facility] Address [address] [place] [address] Care Team Providers Care Corporate Buyer Name Role Phone Esther Rodrigues NP Primary Care Provider [phone] Encounters Date Type Department Care Team Description 09/02/2024 Results [facility]-Up [facility] [address] [address] Madhavi Lam NP Lipid panel, CBC with auto differential, Hemoglobin A1c, Additional followed-up results: 2 09/01/2024 Telephone [facility] [address] [address] Esther Rodrigues NP Prior Authorization [employer] 08/29/2024 4:15 PM CDT Lab [facility] [address] [place] [address] Encounter for screening for lipid disorder; Weight loss counseling, encounter for; Diabetes mellitus screening; Thyroid disorder screening 08/29/2024 4:00 PM CDT Lab [facility] [address] [place] [address] 08/29/2024 3:30 PM CDT Office Visit [facility] [address] [address] Madhavi aLm NP Abdominal pain (Primary Dx); Weight loss [...] days Assessment & Plan (04/15/2024 11:42 AM LAWN SPECIALIST): Will trial Phentermine. Discussed medication side-effects and warning signs. Acute non-recurrent maxillary sinusitis 04/15/20 Assessment & Plan (04/15/2024 11:44 AM LAWN SPECIALIST): Will watch and wait. Advised OTC [...] exercise. Assessment & Plan (04/15/2024 11:30 AM LAWN SPECIALIST): Encouraged heart healthy diet and lifestyle. [...] uit: Not Asked; Counseling Given: Not Answered [facility] Utilities Answer Date Recorded In the past 12 months has e [employer], [employer], oil, or water [employer] threatened to shut off services in your [...] How often do you attend islam or orthodoxy serv ices? Never 01/21/2024 Do you belong [...] staff should administer the PHQ-9) 0 08/29/2024 [facility] Occupat ional Health - Occupational [...] any time in the past 12 m [facility], were you homeless or living in a snf (including now)? No 01/21/2024 Comments Unknown Sex and Gender Information Value Date Recorded Sex Assigned at Not on file Legal Sex Female 2:19 PM LAWN SPECIALIST Gender Identity Female 10/25/2022 10:05 AM CDT Sexual Orientation Not on file Last Filed Vital Signs Vital Sign Reading Time Taken Comments Blood Pressure 122/72 08/29/2024 2:52 PM CDT Pulse 108 08/29/2024 2:52 PM CDT Temperature 37.2 C (98.9 F) 04/15/2024 11:32 AM LAWN SPECIALIST Respiratory Rate 18 08/29/2024 2:52 PM [...] for HIV-1 RNA. Testing performed by: , [address] [place] [address], [place]., [address] Blood 08/29/2024 3:21 PM CDT 08/29/2024 3:23 PM CDT us Zay Henry MD LAB MICROBIOLOGY - GENERAL ORDERABLES Final Result LEATHA CONNER ([place]) 1 [facility] [place] [address] * Hepatitis panel, acute Blood (08/29/2024 3:21 PM CDT) Hep A IgM Nonreactive Nonreactive Comment: Interpretive Data: If Hep A IgM Ab is reported as Equivocal, a new sample should be drawn in two weeks for testing. Current interpretive data was last revised on 19. Testing performed by: [address] [address] Hep B core IgM Nonreactive Nonreactive Jihan PRIETO ([place]) Comment: Interpretive Data If HepB Core IgM Ab is reported as Equivocal, a new sample should be drawn in two weeks for testing. Current interpretive data was last revised on 19. Testing performed by: [address] [address] Hep C Ab Nonreactive Nonreactive LEATHA PRIETO [...] last revised on 2019. Testing performed by: [address] [address] HepBsAg Nonreactive Nonreactive LEATHA PRIETO ([place]) Comment:Testing performed by : [address] [address] Blood 08/29/2024 3:21 PM CDT 08/29/2024 3:23 PM CDT Zay Henry MD LAB MICROBIOLOGY - GENERAL ORDERABLES Final Result Performing Organization Address City/[facility] Co de Phone Number [facility] ([place]) [address] [place] [id number] * (ABNORMAL) HSV 2 IgG Antibody Blood [...] last revised on 2022. Testing performed by: [facility], [address] [place] [address]., [address] Blood 08/29/2024 3:21 PM CDT 08/29/2024 9:38 PM CDT Zay Henry MD LAB MICROBIOLOGY - GENERAL ORDERABLES Final Result Performing Organization Address City/[facility] Co de Phone Number [facility] ([place]) [address] [place] [address] [place] [address] * (ABNORMAL) HSV 1 IgG Antibody Blood [...] last revised on 2016. Testing performed by: [facility], [address] [place] [address], [place]., [address] Blood 08/29/2024 3:21 PM CDT 08/29/2024 9:38 PM CDT Zay Henry MD LAB MICROBIOLOGY - GENERAL ORDERABLES Final Result LEATHA PRIETO ([place]) 1 [facility] [place] [address] * RPR Blood (08/29/2024 3:21 PM CDT) RPR Nonreactive Nonreactive Comment:Testing performed by : , [address] [place] [address], [address] Blood 08/29/2024 3:21 PM CDT 08/29/2024 3:23 PM CDT Zay Henry MD LAB MICROBIOLOGY - GENERAL ORDERABLES Final Result Performing Organization Address City/[facility] Co de Phone Number LEATHA PRIETO ([place]) 1 [facility] [place] [address] * (ABNORMAL) Differential, auto (08/29/2024 3:19 PM CDT) Neutrophil abs 7.95(H) 1.50 - 6.50 K/cumm Comment:Testing performed by : , [address] [place] [address], [address] Imm gran abs 0.03 0.00 - 0.10 K/cumm [facility] ([place]) Comment:Testing performed by : [address], [address] Lymphocyte abs 3.17 0.80 - 3.30 K/cumm [facility] ([place]) Comment:Testing performed by : , [address] [place] [address], [address] Monocyte abs 0.70 0.20 - 0.80 K/cumm [facility] ([place]) Comment:Testing performed by : [address], [address] Eosinophil abs 0.05 0.00 - 0.50 K/cumm [facility] ([place]) Comment:Testing performed by : [address], [address] Basophil abs 0.04 0.00 - 0.10 K/cumm [facility] ([place]) Comment:Testing performed by : [address] [address] Neutrophil pct 66.6 % [facility] R [facility] ([place]) Comment: Interpretive Data Percent cell count reference ranges are not reported, since discordance with absolute values may lead to misinterpretation of CBC data. Current Interpretive Data was last revised on 2017. Testing performed by: [address] [address] Imm gran pct 0.3 % [facility] ([place]) Comment: Interpretive Data Percent cell count reference ranges are not reported, since discordance with absolute values may lead to misinterpretation of CBC data. Current Interpretive Data was last revised on 2017. Testing performed by: [address] [address] Lymphocyte pct 26.5 % [facility] ([place]) Comment: Interpretive Data Percent cell count reference ranges are not reported, since discordance with absolute values may lead to misinterpretation of CBC data. Current Interpretive Data was last revised on 2017. Testing performed by: [address] [address] Monocyte pct 5.9 % [facility] ([place]) Comment: Interpretive Data Percent cell count reference ranges are not reported, since discordance with absolute values may lead to misinterpretation of CBC data. Current Interpretive Data was last revised on 2017. Testing performed by: [address] [address] Eosinophil pct 0.4 % [facility] ([place]) Comment: Interpretive Data Percent cell count reference ranges are not reported, since discordance with absolute values may lead to misinterpretation of CBC data. Current Interpretive Data was last revised on 2017. Testing performed by: [address] [address] Basophil pct 0.3 % [facility] ([place]) Comment: Interpretive Data Percent cell count reference ranges are not reported, since discordance with absolute values may lead to misinterpretation of CBC data. Current Interpretive Data was last revised on 2017. Testing performed by: [address] [address] Blood 08/29/2024 3:19 PM CDT 08/29/2024 7:31 PM CDT Madhavi Lam NP LAB BLOOD ORDERABLES Final Re sult Performing Organization Address [facility]/ZIP Co de Phone Number LEATHA PRIETO ([place]) [address] [place] [address] * Thyroid Function [place] (08/29/2024 3:19 PM CDT) TSH 1.53 0.30 - 4.20 mcIUnit/mL Comment:Testing performed by : [address], [address] Blood 08/29/2024 3:19 PM CDT 08/29/2024 7:31 PM CDT Madhavi Lam NP LAB BLOOD ORDERABLES Final Re sult Performing Organization Address [facility] Co de Phone Number LEATHA [facility] ([place]) 1 [place] [address] * (ABNORMAL) CBC with auto differential (08/29/2024 3:19 PM CDT) WBC 11.94(H) 3.80 - 9.90 K/cumm Comment:Testing performed by : [address] [address] Hgb 13.5 11.9 - 15.5 g/dL [facility] ([place]) Comment:Testing performed by : [address] [address] Hct 40.7 35.6 - 45.5 % [facility] ([place]) Comment:Testing performed by : [address] [address] Plt 137(L) 150 - 400 K/cumm [facility] ([place]) Comment:Testing performed by : [address], [address] MPV 11.3 9.1 - 12.3 fL [facility] ([place]) Comment:Testing performed by : , [address] [place] [address], [address] RBC 4.28 3.90 - 5.20 M/cumm [facility] ([place]) Comment:Testing performed by : , [address] [place] [address], [address] MCV 95.1 81.3 - 96.4 fL [facility] ([place]) Comment:Testing performed by : , [address] [place] [address], [address] MCH 31.5 27.1 - 33.3 pg [facility] ([place]) Comment:Testing performed by : , [address] [place] [address], [address] MCHC 33.2 32.3 - 35.7 g/dL [facility] ([place]) Comment:Testing performed by : [address], [address] RDW CV 11.9 11.1 - 14.9 % [facility] ([place]) Comment:Testing performed by : [address], [address] RDW SD 40.9 35.7 - 48.1 fL [facility] ([place]) Comment:Testing performed by : [address], [address] NRBC abs 0.00 0.00 - 0.01 K/cumm [facility] ([place]) Comment:Testing performed by : [address], [address] Blood 08/29/2024 3:19 PM CDT 08/29/2024 7:31 PM CDT us Madhavi Lam NP LAB BLOOD ORDERABLES Final Re sult [facility] ([place]) 1 [facility] [place] [address] * Hemoglobin A1c (08/29/2024 3:19 PM CDT) [facility] Hgb A1C 5.0 4.0 - 5.6 % Comment:Testing performed by : , [address] [place] [address]., [address] Estimated Average Glucose 97 mg/dL LEATHA PRIETO ([place]) Comment: The ADA recommends reporting an estimated Average Glucose (eAG) with all Hemoglobin A1c results using the equation derived from a study of 507 normal and diabetic adults. Minority populations were underrepresented and children were not included. (Diabetes Care 31:2390-9020, 2008). The eAG is not equivalent to a fasting glucose. Testing performed by: , [address] [place] [address]., [address] Blood 08/29/2024 3:19 PM CDT 08/29/2024 7:31 PM CDT Madhavi Lam NP LAB BLOOD ORDERABLES Final Re sult LEATHA PRIETO ([place]) 1 [facility] [place] [address] * (ABNORMAL) Lipid panel (08/29/2024 3:19 PM [...] revised on 2017. Testing performed by: , [address] [place] [address], [place]., [address] Triglycerides 183(H) <=149 mg/dL LEATHA PRIETO ([place]) [...] revised on 2017. Testing performed by: , [address] [place] [address]., [address] HDL 40 >=40 mg/dL LEATHA PRIETO ([place]) [...] revised on 2017. Testing performed by: , [address] [place] [address]., [address] LDL, calculated 107 <=129 mg/dL LEATHA PRIETO [...] revised on 2023. Testing performed by: , [address] [place] [address]., [address] Non-HDL Cholesterol 139 mg/dL LEATHA PRIETO ([place]) [...] revised on 2017. Testing performed by: , [address] [place] [address]., [address] Chol/HDL ratio 4 ALEJANDRA PRIETO ([place]) Comment:Testing performed by : [address] [address] Blood 08/29/2024 3:19 PM CDT 08/29/2024 7:31 PM CDT Madhavi Lam NP LAB BLOOD ORDERABLES Final Re sult LEATHA CONNER ([place]) 1 [facility] [place] [address] from Last 3 Months Insurance [facility] CHOICE OOS [facility] OOS IDPA Care Teams Corporate Buyer Relationship Specialty Start Date End Date Esther Rodrigues NP PCP - General Family Medicine 05/18/23
--- NOTE | 2024-09-18 07:22 | WPDHPUPDATE1 ---
History and Physical Update Update Date/Time: 09/18/24 07:22 History and Physical has been reviewed, including an updated exam of the patient. There are NO changes in the patient's condition. Risks, benefits, and alternatives have been discussed and questions answered. Patient agrees to proceed with procedure.
[2024-09-18 08:37] VITALS: BP 120/76; PULSE 70; RESP 14; TEMP 36.7; O2SAT 100; BMI 34.7
[2024-09-18] MEDS: LACTATED RINGERS 1,000 ML 30 ML IV CONT (09:15)
[2024-09-18] MEDS: ACETAMINOPHEN 500 MG TABLET 1000 MG PO (10:07)
--- NOTE | 2024-09-18 11:07 | WPDANESEPPF ---
Anes - Initial Pre Proc Eval Procedure: Operation Date: 09/18/24 10:30 Proposed Procedures p Hysteroscopy with Intrauterine Device Removal - Zay Henry MD Date/Time: 09/18/24 11:07 Surgeon: Zay Henry MD Pre Op Diagnosis: Retained IUD Patient Data Age: 24 Gender: F Height: 1.57 m Weight: 86 kg Last Vital Signs Temp 98.0 F 09/18/24 08:37 Pulse 70 09/18/24 08:37 Resp 14 09/18/24 08:37 BP 120/76 09/18/24 08:37 Pulse Ox 100 09/18/24 08:37 O2 Del Method Room Air 09/18/24 08:37 Allergies Allergy/AdvReac Type Severity Reaction Status Date / Time No Known Allergies Allergy Verified 09/18/24 09:28 Home Medications ?Medication ?Instructions ?Recorded ?Confirmed ?Type tirzepatide (weight loss) 2.5 2.5 mg subcut WEEKLY 09/09/24 09/18/24 History mg/0.5 mL subcutaneous pen injector (Zepbound) fluconazole 150 mg tablet 150 mg PO DAILY #2 tabs 09/10/24 09/11/24 Rx misoprostol 200 mcg tablet 200 mcg vaginal ONCE #2 tabs 09/10/24 09/18/24 Rx (Cytotec) valacyclovir 500 mg tablet 500 mg PO Q12H 3 days #6 tabs 09/10/24 09/11/24 Rx (Valtrex) Patient hx anesthesia problems: none Family hx anesthesia problems: none Results Review: All pre-operative results and documents have been reviewed as part of the pre-operative evaluation. [facility] Past Medical History Medical History Encounter for IUD removal Vaginal discharge Encounter for insertion of mirena IUD Encounter for screening examination for sexually transmitted disease Irregular periods Suppression of menstruation Anxiety HSV-2 (herpes simplex virus 2) infection Surgical History Surgical History History of gynecological procedure (09/09/24) mirena iud removal History of gynecological procedure (05/29/22) mirena iud insertion History of appendectomy (~2010) Family History Family History Mother No problems noted. Father Diverticulitis Grandparent Lung cancer Grandparent Breast cancer Social History Social History Years smoked: 1.5 Smoking status: Current every day smoker Tobacco type: e-cigarettes/vaping Second hand tobacco smoke exposure: No Alcohol intake: current Alcohol use details: 4 x month Substance use: former Substance use type: marijuana Last use: 05/2021 Do You Feel Safe in your Home?: Yes Lack of Transportation: No Lack of Food: Never True Current Housing: I Have Housing Concerned About Future Housing: No Difficulty Paying Gas/Electric Bills: No Difficulty Paying for Meds: No Currently Unemployed: No Education: High School Diploma/GED Difficulty w/ Childcare or Family Care: No Living arrangements: with family Additional living arrangements comments: single Occupation/Education: other Additional occupation/education comments: stay at home mom Gender identity (if verbalized by the patient): Female Sexual Orientation (if Verbalized by the Patient): Straight or Heterosexual Spiritual care concerns: No Anes - Eval Final PreProcedure Day of Procedure 09/18/24 11:07 Patient weight: obese Lungs: normal air movement Airway: Mallampati scale class II Neurological: alert and oriented Last oral intake: >/= 8 hours ASA classification: II Emergent: no Anesthetic plan: proceed Anesthesia type and monitoring: general GIVS and standard monitoring Results Review: All pre-operative results and documents have been reviewed as part of the pre-operative evaluation. Anxiety BMI 34, on GLP1 and off for 9 days. Informed Consent: The patient's anesthetic plan and its attendant risks and benefits were discussed with the patient/family/POA. Questions were solicited and answers provided to the satisfaction of the patient/family/POA.
--- NOTE | 2024-09-18 11:25 | W.PM.PROC2 ---
Procedure Note - Detailed Date of Procedure 09/18/24 Pre-op Diagnosis Retained IUD Post-op Diagnosis Same Procedure Performed 1. Hysteroscopy with IUD removal Surgeon Zay Henry MD Anesthesia MAC Findings Retained IUD Description of Procedure Patient prepped draped usual manner for this procedure. Cervix dilated to allow the hysteroscope to be placed. Hysteroscopic exam did reveal IUD in the endometrial cavity. This was readily grasped and removed without difficulty. Patient was then sent to recovery room stable condition. Estimated Blood Loss 10 Drains No Packing No Pathology None sent Complications No immediate complications Condition Stable Disposition PACU [facility] Billing Surgery - Charge Forward: Surgery Billing
[2024-09-18 11:46] VITALS: BP 95/70; PULSE 95; RESP 20
[2024-09-18] MEDS: oxyCODONE HCL (*CRX) 5 MG TAB IR PO (11:54)
[2024-09-18 12:15] VITALS: BP 106/63; PULSE 65; RESP 20
== END 2024-09-18 12:25 | disposition home or self-care (01) ==
PROVIDERS: PCP Nurse Practitioner; Visit Provider Obstetrics & Gynecology
PROC: 0U5B8ZZ Destruction of Endometrium, Via Natural or Artificial Opening Endoscopic (ICD-10-PCS; CPT 58563; principal; 2024-09-18 10:30)
DX: Z30.432 Encounter for removal of intrauterine contraceptive device (principal); F17.290 Nicotine dependence, other tobacco product, uncomplicated; E66.9 Obesity, unspecified; Z68.34 Body mass index [BMI] 34.0-34.9, adult
CPT/HCPCS: 58579; A9270; J1100; J2003; J2250; J2405; J2704; J3010; J7120

== ENCOUNTER 2024-12-09 14:28 | Emergency (ER) | payer BC, MEDICAID, SELFPAY ==
[2024-12-09] VITALS (15 sets, daily range): BP systolic 108–120; BP diastolic 72–91; PULSE 122–151; RESP 8–24; TEMP 37.2–38.5; O2SAT 97–100
--- NOTE | ~2024-12-09 | XR_ITS ---
CHEST RADIOGRAPH CLINICAL HISTORY: Fever and tachycardia. COMPARISON: 06/15/2018 TECHNIQUE: Single portable view of the chest. FINDINGS The cardiomediastinal silhouette is unremarkable. The lungs are clear. IMPRESSION: No focal infiltrate or effusion. Reviewed, dictated and finalized at location A.
--- OUTSIDE RECORDS SUMMARY | 2024-12-09 08:50 | XMS_ITS | Encounter Summary ---
Author Organization [facility] Healthcare Address [address] [place] [address] Care Team Providers Care Case Preparer And Liner Name Role Phone Esther Rodrigues NP Primary Care Provider [phone] Reason for Visit * Reason Comments Sinus Problem Entered automaticall y based on patient selection in [employer]. Encounter Details Date Type Department Care Team ([facility] Contact Info) Description 12/09/2024 8:50 AM CDT E-Visit [facility] Medical Group Virtual Care [address] [place] [phone] Wanda Bazan NP [address] [place] [address] Your Medications Social History Tobacco Use Types Packs/Day Years Used Date Smoking Tobacco: Every Day Vaping [facility] Utilities Answer Date Recorded In the past 12 months has [facility] [employer], gas, oil, or water [employer] threatened to shut off services in your [...] No 01/21/2024 Social Connection and Isolation Panel Answer Date Recorded In a typical week, how many times do you talk on the phone with family, friends, or neighbors? Twice a week 01/21/2024 How often do you get together with friends or re latives? Twice a week 01/21/2024 How often do you attend sabianist or episcopal serv ices? Never 01/21/2024 Do you belong to any clubs o r organizations such as sabianist groups, unions, fraternal or athletic groups, or [...] staff should administer the PHQ-9) 0 08/29/2024 [facility] of Occupat ional Health - Occupational Stress [...] any time in the past 12 m [facility], were you homeless or living in a half-way (including now)? 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 Repeat in 7 days if symptoms persist. 2 tablet 12/09/2024 amoxicillin-clavul anate (AUGMENTIN) 875-125 mg per tablet Take 1 tablet by mouth 2 (two) times a day 20 tablet 12/09/2024 documented in this encounter Miscellaneous Notes * E-Visit Note - Wanda Bazan NP - 12/09/2024 8:52 AM CDT Augustina Dumont 12/09/2024 E-Visit Submission Subjective/Objective: Augustina Dumont contacted the office today via e-visit for Sinusitis. The patient-submitted questionnaire was assessed for pertinent information and the patient's problem list, medication list, and allergies were reviewed as part of the e-visit. The chart was updated to identify any changes in these areas. Assessment: Diagnosis Plan 1. Acute pansinusitis, recurrence not specified Plan: The patient was given information regarding any new medication(s) prescribed, if applicable, as well as any wymr-iag-fanxosb remedies. She was given instructions regarding follow up and timeframe if symptoms worsen or don???t improve. These instructions were included in the [employer] message reply tothe patient. Patient Instructions were included in the message reply to patient. My total encounter time on 12/09/2024 was 5 minutes which was spent in the activities documented inthe note. New Medications Ordered This Visit amoxicillin-clavulanate (AUGMENTIN) 875-125 mg per tablet Sig: Take 1 tablet by mouth 2 (two) times a day Dispense: 20 tablet Refill: 0 fluconazole (DIFLUCAN) 150 mg tablet Sig: Take 1 tablet (150 mg total) by mouth once for 1 dose Take one tab now. Repeat in 7 days if symptoms persist. Dispense: 2 tablet Refill: 0 Wanda Bazan NP documented in this encounter Plan of Treatment Not on file documented as of this encounter Visit Diagnoses Diagnosis Acute pansinusitis, recurrence not specified- Primary documented in this encounter Care Teams Case Preparer And Liner Relationship Specialty Start Date End Date Esther Rodrigues NP PCP - General Family Medicine 05/18/23 documented as of this encounter
--- OUTSIDE RECORDS SUMMARY | 2024-12-09 08:50 | XMS_ITS | Encounter Summary ---
Author Organization [facility] Healthcare Address [address] [place] [address] Care Team Providers Care Account Services Analyst Name Role Phone Esther Rodrigues NP Primary Care Provider [phone] Reason for Visit * Reason Comments Sinus Problem Entered automaticall y based on patient selection in [employer]. Encounter Details Date Type Department Care Team ([facility] Contact Info) Description 12/09/2024 8:50 AM CDT E-Visit [facility] Medical Group Virtual Care [address] [place] [phone] Wanda Bazan NP [address] [place] [address] Your Medications Social History Tobacco Use Types Packs/Day Years Used Date Smoking Tobacco: Every Day Vaping [facility] Utilities Answer Date Recorded In the past 12 months has [facility] [employer], gas, oil, or water [employer] threatened to shut off services in your [...] week 01/21/2024 How often do you attend sabianism or gnosticist serv ices? Never 01/21/2024 Do you belong to any clubs o r organizations such as sabianism groups, unions, fraternal or athletic groups, or [...] staff should administer the PHQ-9) 0 08/29/2024 [facility] of Occupat ional Health - [...] any time in the past 12 m [facility], were you homeless or living in a skilled nursing (including now)? 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 She was given instructions regarding follow up and timeframe if symptoms worsen or don???t improve. These instructions were included in the [employer] message reply tothe patient. Patient Instructions were [...] Primary documented in this encounter Care Teams Account Services Analyst Relationship Specialty Start Date End Date Esther Rodrigues NP PCP - General Family Medicine 05/18/23 documented as of this encounter
--- NOTE | 2024-12-09 14:32 | ECG_ITS ---
Test Date: 2024-12-09 14:36:14 Measurements Intervals [place] Rate: 144 P: 59 CO: 135 QRS: 87 QRSD: 91 T: 60 QT: 327 QTc: 506 Interpretive Statements SINUS TACHYCARDIA INCOMPLETE RIGHT BUNDLE BRANCH BLOCK MINIMAL Q WAVES- INFERIOR LEADS NONSPECIFIC ST & T-WAVE ABNORMALITY- ANT/INF LEADS ABNORMAL ECG No previous ECG available for comparison Electronically Signed On 12-09-2024 16:54:45 CDT by Sage Hernández D.O.
--- NOTE | 2024-12-09 14:47 | ED_ITS ---
HPI - General Adult General Chief complaint: Upper Respiratory Infection Stated complaint: dizzness Time Seen by Provider: 12/09/24 14:47 Source: patient Mode of arrival: ambulatory Limitations: no limitations History of Present Illness HPI narrative: 24 years old white female drove herself to the emergency room complaining of not feeling well, body aches, nasal congestion, postnasal discharge, sore throat, upper back pain, dry cough patient denies sick contact. Patient has been on weight loss drug for 4 months, last injection was 6 days ago. Patient usually gets nausea and vomiting after having the shots. She denies any fever or chills. Related Data Home Medications ?Medication ?Instructions ?Recorded ?Confirmed ?Last Taken ?Type tirzepatide (weight loss) 2.5 2.5 mg subcut WEEKLY 09/18/24 09/09/24 History mg/0.5 mL subcutaneous pen injector (Zepbound) Allergies Allergy/AdvReac Type Severity Reaction Status Date / Time No Known Allergies Allergy Verified 12/09/24 14:31 Review of Systems 2 Review of Systems: All systems reviewed & are unremarkable except as noted in HPI and below PMFSH Past Medical History Medical History Encounter for IUD removal Vaginal discharge Encounter for insertion of mirena IUD Encounter for screening examination for sexually transmitted disease Irregular periods Suppression of menstruation Anxiety HSV-2 (herpes simplex virus 2) infection Surgical History Surgical History History of gynecological procedure (09/09/24) mirena iud removal History of gynecological procedure (05/29/22) mirena iud insertion History of appendectomy (~2010) Family History Family History Mother No problems noted. Father Diverticulitis Grandparent Lung cancer Grandparent Breast cancer Social History Social History Years smoked: 1.5 Smoking status: Current every day smoker Tobacco type: e-cigarettes/vaping Second hand tobacco smoke exposure: No Alcohol intake: current Alcohol use details: 4 x month Substance use: former Substance use type: marijuana Last use: 05/2021 Do You Feel Safe in your Home?: Yes Lack of Transportation: No Lack of Food: Never True Current Housing: I Have Housing Concerned About Future Housing: No Difficulty Paying Gas/Electric Bills: No Difficulty Paying for Meds: No Currently Unemployed: No Education: High School Diploma/GED Difficulty w/ Childcare or Family Care: No Living arrangements: with family Additional living arrangements comments: single Occupation/Education: other Additional occupation/education comments: stay at home mom Gender identity (if verbalized by the patient): Female Sexual Orientation (if Verbalized by the Patient): Straight or Heterosexual Spiritual care concerns: No Exam 2 Narrative: General appearance: Well-developed, well-nourished, Skin: Normal color Head: Normocephalic, nontraumatic Eyes: Clear conjunctiva ENT: Oropharynx normal, ears normal, nose normal Neck: Supple, nontender Chest and respiratory: Airway patent, no respiratory distress, no accessory muscle use Heart: Regular rate/rhythm Abdomen: Soft, nontender, no organomegaly, quiet bowel sounds Vascular: Normal peripheral pulses, normal capillary refill. Musculoskeletal: Normal range of motion, nontender back Neurologic: Alert and oriented ?3, SURVEYOR'S ASSISTANT is normal as tested, no gross motor deficit Course Vital Signs Vital signs: Vital Signs Temperature 38.5 C H 12/09/24 14:30 Pulse Rate 141 H 12/09/24 14:30 Respiratory Rate 18 12/09/24 14:30 Blood Pressure 120/82 12/09/24 14:30 Pulse Oximetry 97 12/09/24 14:30 Oxygen Delivery Room Air 12/09/24 14:30 Temperature 37.2 C 12/09/24 16:15 Pulse Rate 122 H 12/09/24 16:01 Respiratory Rate 8 L 12/09/24 16:01 Blood Pressure 117/75 12/09/24 16:00 Pulse Oximetry 98 12/09/24 16:01 Oxygen Delivery Room Air 12/09/24 14:30 Medical Decision Making [facility] Narrative Medical decision making narrative: patient presents with upper respiratory infection like symptoms, body aches Vital signs showing heart rate of 141, temperature 38.5? Physical examination showing anxious patient with tachycardia complaining of general aches all over Differential diagnosis include upper respiratory viral infection, pneumonia, urinary tract infection Blood workup today include CBC, CMP, blood culture, showed no significant abnormalities Urinalysis showed no significant abnormality Chest x-ray showed no acute abnormalities Patient tested positive for COVID Diagnosis COVID infection Discharged on paxlovid Vital Signs Vital Signs: Vital Signs Temperature 38.5 C H 12/09/24 14:30 Pulse Rate 141 H 12/09/24 14:30 Respiratory Rate 18 12/09/24 14:30 Blood Pressure 120/82 12/09/24 14:30 Pulse Oximetry 97 12/09/24 14:30 Oxygen Delivery Room Air 12/09/24 14:30 Temperature 37.2 C 12/09/24 16:15 Pulse Rate 122 H 12/09/24 16:01 Respiratory Rate 8 L 12/09/24 16:01 Blood Pressure 117/75 12/09/24 16:00 Pulse Oximetry 98 12/09/24 16:01 Oxygen Delivery Room Air 12/09/24 14:30 Lab Data 12/09/24 15:00 12/09/24 15:00 Labs: Lab Results 12/09/24 12/09/24 12/09/24 Range/Units 14:59 15:00 15:11 WBC 5.5 (4.8-10.8) K/mm3 RBC 3.92 L (4.20-5.40) M/mm3 Hgb 12.3 (12.0-15.0) g/dL Hct 35.7 (35.0-49.0) % MCV 91.1 (78.0-102.0) fL MCH 31.4 H (27.0-31.0) pg MCHC 34.5 (32-36) g/dL RDW 11.4 L (11.6-14.4) % Plt Count 223 (150-420) K/mm3 MPV 10.3 (9.2-11.8) fl Immature Gran % (Auto) 0.4 H (0.0-0.0) % Neut % (Auto) 80.6 H (50.0-70.0) % Lymph % (Auto) 7.7 L (18.0-42.0) % [place] % (Auto) 10.4 (2.0-11.0) % Eos % (Auto) 0.4 L (1.0-6.0) % Baso % (Auto) 0.5 (0.0-1.0) % Lymph # (Auto) 0.42 L (1.10-4.50) K/mm3 [place] # (Auto) 0.57 (0.10-0.90) K/mm3 Eos # (Auto) 0.02 (0.02-0.50) K/mm3 Baso # (Auto) 0.03 (0.00-0.10) K/mm3 Abs Immat Gran (auto) 0.02 H (0.00-0.00) K/mm3 Absolute Neuts (auto) 4.43 (1.70-7.20) K/mm3 Absolute Nucleated RBC 0.00 (0.00-0.00) K/mm3 Nucleated RBC % 0.0 (0-0.0) % Sodium 138 (137-145) mmol/L Potassium 3.7 (3.4-5.0) mmol/L Chloride 101 (98-107) mmol/L Carbon Dioxide 24 (22-30) mmol/L Anion Gap 13 H (4-12) mmol/L BUN 6 L (7-17) mg/dL Creatinine 0.74 (0.7-1.0) mg/dL Estim Creat Clear Calc 102 ml/min Estimated GFR > 60 (59 - ) Glucose 96 (65-110) mg/dL Calculated Osmolality 283 L (285-295) mOsm/kg Calcium 10.2 (8.4-10.2) mg/dL Total Bilirubin 0.7 (0.2-1.3) mg/dL AST 49 H (14-36) U/L ALT 108 H (6-35) U/L Alkaline Phosphatase 78 (38-126) U/L Total Protein 7.8 (6.3-8.2) g/dL Albumin 5.1 (3.5-5.1) g/dL Urine Color Yellow (Yellow) Urine Appearance Clear (Clear) Urine pH 6.0 (5.0-8.0) Ur Specific [place] 1.025 H (1.010-1.020) Urine Protein Negative (Negative) Urine Glucose (UA) Negative (Negative) Urine Ketones 3+ H (Negative) Ur Blood (Man) Negative (Negative) Urine Nitrate Negative (Negative) Urine Bilirubin 1+ H (Negative) Urine Urobilinogen 0.2 (0.2-1.0) mg/dL Leukocyte Esterase Rfl Negative (Negative) MARIA ELENA/UL Urine RBC 0-2 (0-2) /hpf Urine WBC 0-3 (0-3) /hpf Ur Squamous Epith Cells Few (Few) /hpf Urine Bacteria Trace (None) /hpf Urine Mucus Moderate H /lpf Monoscreen Negative (Negative) Influenza A (RT-PCR) Negative (Negative) Influenza B (RT-PCR) Negative (Negative) RSV (RT-PCR) Negative (Negative) SARS-CoV-2 RNA (RT-PCR) Positive A (Negative) Group A Strep (PCR) Not detected (Negative) Imaging Data Radiologist's impression: Impressions Chest X-Ray 12/09/24 15:07 IMPRESSION: No focal infiltrate or effusion. Critical Care Time Critical Care Time Critical Care Time: Yes Total Critical Care Time: 30 Discharge Plan Discharge Clinical Impression: COVID-19, Viral infection Patient Disposition: Home Condition: Stable Instructions: Viral Syndrome (ED), COVID-19 (Coronavirus Disease 2019) (ED) Additional Instructions: Return if symptoms are worsening , call your family physician for appointment, take Tylenol , ibuprofen as as needed for aches and pain, continue home medications. Patient Language: Mohawk Prescriptions: New Paxlovid 300 mg (150 mg x 2)-100 mg tablets,dose pack See Rx Instructions PO .COMPLEX Qty: 30 0RF Rx Instructions: take TWO 150 mg tablets of nirmatrelvir with ONE 100 mg tablet of ritonavir twice daily for 5 days No Action Zepbound 2.5 mg/0.5 mL pen injector 2.5 mg subcut WEEKLY Patient Comments: Tuesdays Rx Instructions: for 4 weeks ibuprofen 600 mg tablet 600 mg PO TID Qty: 20 0RF valacyclovir [Valtrex] 500 mg tablet 500 mg PO Q12H 3 Days Qty: 6 2RF fluconazole 150 mg tablet 150 mg PO DAILY Qty: 2 0RF Rx Instructions: take 1 dose at cloth picker, take 2nd dose 72 hours later Follow-up/Referrals: Franco Rodrigues [Student Physical Therapist, Therapy]
--- OUTSIDE RECORDS SUMMARY | 2024-12-09 14:51 | XMS_ITS | Clinical Summary ---
Author Organization [facility] Address [address] [place] [address] Care Team Providers Care Foundry Metallurgist Name Role Phone Unavailable Primary Care Provider Unavailabl e Source Comments [facility],non-owned Affiliates and Associated Physician Practices is amultiple site organization consisting of ambulatory clinics and hospital sitesin [place], [place]. This disclosure is being madepursuant to the Care Everywhere program and may not contain all information available regarding this patient. 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 Gender Identity Not on file Sexual Orientation [...] Health Maintenance Due Date Last Done Comments HIV SCREENING 07/28/2014 HPV VACCINE (1 - 3-dose series) 07/28/2014 CHLAMYDIA/GONORRHEA SCREENING 2015 HEPATITIS C SCREENING 07/24/2017 DTAP/TDAP/TD VACCINES (1 - Tdap) 07/28/2018 HEPATITIS B VACCINE (1 of 3 - 19+ 3-dose series) 07/28/2018 PAP SMEAR 07/28/2020 COVID-19 VACCINE (1 - 2023-2 5 season) 2023 DEPRESSION SCREENING 04/23/2024 INFLUENZA VACCINE (#1) 2024 ZOSTER VACCINE (1 of 2) 07/28/2049 [...] patient's age to complete this topic Insurance [facility] MEDICAL [facility] Address: [facility] [id number] [place] [id number] ANTHEM ANTHEM
--- OUTSIDE RECORDS SUMMARY | 2024-12-09 14:51 | XMS_ITS | Patient Health Record ---
Author Organization [facility] [employer] Address [address] [place] [address] Care Team Providers Care Paper Cone Maker Name Role Phone Yeny Serna Unavailable [phone] Reason For Referral No Information Medications Medication SIG (Take, Route, Frequency, Duration) Notes Start Date End Date Status buPROPion HCl ER (XL) 300 MG Tablet Extended Release 24 Hour Oral 07/16/2023 Active Amoxicillin 875 MG Tablet Oral 07/16/2023 Active dexAMETHasone 1 MG Tablet Oral 07/16/2023 Active Citalopram Hydrobromide 10 MG Tablet Oral 07/16/2023 Active Amoxicillin-Pot Clavulanate 875-125 MG Tablet Oral 07/16/2023 Active Sprintec 28 0.25-35 MG-MCG Tablet Oral 07/16/2023 Active Vitamin D *Pick strength-f orm from [employer] for eRX* 07/16/2023 Active Mupirocin 2% Ointment External 07/16/2023 Active MIRENA 21 MCG/24 HR (UP TO 8 YEARS) 52 MG INTRAUTERINE DEVICE *Reorder from [employer] for eRx and Interaction Alerts* 07/16/2023 Active valACYclovir HCl 500 MG Tablet Oral 07/16/2023 Active Social History Social History Additional Details Category Social Info Options Details Migrated Social History Migrated Social History Alcohol Intake: Occasional 07/16/2023,Tobacco Years: Former smoker 07/16/2023 Plan Of Treatment No Information Insurance Providers Payer Name Payer Address Payer Phone Subscriber Number Group Number Insured Name Patient Relationship to Insured Coverage Start Date Coverage End Date [employer] [address] [place] [address] [id number] SARA MILLER Self - patient is the insured [facility] Medicaid Replacement - Hmo [address] [place] [address] [id number] SARA MILLER Self - patient is the insured Medical (General) History Surgical History Surgery Date(Month/Year) Appendectomy (50120) 09/21/2010 Other 09/21/2010
--- OUTSIDE RECORDS SUMMARY | 2024-12-09 14:51 | XMS_ITS | Encounter Summary ---
Author Organization [facility] Healthcare Address [address] [place] [address] Care Team Providers Care Assistant Director Of Plant Operations Name Role Phone Esther Rodrigues NP Primary Care Provider [phone] Encounter Details Date Type Department Care Team ([facility] st Contact Info) Description 12/09/2024 Patient Self-Triage [facility] HealthCare/ Physicians [address] [place] [address] Bruce, Generic Provider [address] [place], [place] [id number] Social History Tobacco Use Types Packs/Day Years Used Date Smoking Tobacco: Every Day Vaping [facility] Utilities Answer Date Recorded In the past 12 months has [facility] electric, gas, oil, or water company threatened to shut off services in your [...] week 01/21/2024 How often do you attend quaker or muslim serv ices? Never 01/21/2024 Do you belong to any clubs o r organizations such as quaker groups, unions, fraternal or athletic groups, or [...] staff should administer the PHQ-9) 0 08/29/2024 [facility] - Occupational Stress Questionnaire Answer Date Recorded [...] any time in the past 12 m [facility], were you homeless or living in a senior living (including now)? 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
--- OUTSIDE RECORDS SUMMARY | 2024-12-09 14:51 | XMS_ITS | Clinical Summary ---
Author Organization [address] Address [address] [place] [place] [address] Care Team Providers Care Hospice Care Sales Consultant Name Role Phone Esther Rodrigues NP Primary Care Provider [phone] Allergies No known active allergies Medications levonorgestreL (Mirena) IUD Active valACYclovir (VALTREX) 500 mg tablet Take 1 tablet (500 mg total) by mouth 2 (two) times a day As needed Active dicyclomine (BENTYL) 10 mg capsuleIndicati ons:Abdominal pain Take 1 capsule (10 mg total) by mouth 4 (four) times a day before meals and nightly 120 capsule 11 5 08/30/19 26 Active ondansetron (ZOFRAN) 4 mg tablet Take 1 tablet (4 mg total) by mouth every 8 (eight) hours as needed for nausea or vomiting 20 tablet 5 Active tirzepatide, weight loss, (Zepbound) 10 mg/0.5 mL pen injector Inject 0.5 mL (10 mg total) under the skin every 7 days 2 mL 5 Active amoxicillin-cla vulanate (AUGMENTIN) 875-125 mg per tablet Take 1 tablet by mouth 2 (two) times a day 20 tablet 5 Active fluconazole (DIFLUCAN) 150 mg tabletIndicatio ns:Urinary Tract/Genitouri nary Infection Take 1 tablet (150 mg total) by mouth once for 1 dose Take one tab now. Repeat in 7 days if symptoms persist. 2 tablet 5 12/10/19 25 Active tirzepatide, weight loss, (Zepbound) 5 mg/0.5 mL pen injector Inject 0.5 mL (5 mg total) under the skin every 7 days 2 mL 5 11/18/19 25 Discontinu ed(Alterna te therapy) tirzepatide, weight loss, (Zepbound) 7.5 mg/0.5 mL pen injector Inject 0.5 mL (7.5 mg total) under the skin every 7 days 2 mL 5 11/18/19 25 Discontinu ed(Alterna te therapy) tirzepatide, weight loss, (Zepbound) 10 mg/0.5 mL pen injector Inject 0.5 mL (10 mg total) under the skin every 7 days 2 mL 5 11/27/19 25 Discontinu ed(Reorder ) Active Problems Problem Noted Date Diagnosed Date [...] days Assessment & Plan (04/15/2024 11:42 AM CHEMICAL BLENDER): Will trial Phentermine. Discussed medication side-effects and warning signs. Acute non-recurrent maxillary sinusitis 04/15/20 Assessment & Plan (04/15/2024 11:44 AM CHEMICAL BLENDER): Will watch and wait. Advised OTC cold [...] exercise. Assessment & Plan (04/15/2024 11:30 AM CHEMICAL BLENDER): Encouraged heart healthy diet and lifestyle. Advised [...] Encounters Date Type Department Care Team Description 12/09/2024 8:50 AM CDT E-Visit [facility] Medical [facility] Virtual Care [address] [place] [address] Wanda Bazan NP Your Medications 12/09/2024 Patient Self-Triage [facility] HealthCare/[facility] Physicians [address] [place] [address] Mychart, Generic Provider 09/25/2024 Telephone Family [facility] [address] [place] [address] Esther Rodrigues NP from Last 3 Months Immunizations Immunization Administration [...] uit: Not Asked; Counseling Given: Not Answered [facility] Schematic Labsities Answer Date Recorded In the past 12 months has th e evOLED, gas, oil, or water company threatened to [...] week 01/21/2024 How often do you attend alevism or hinduism serv ices? Never 01/21/2024 Do you belong to any clubs o r organizations such as alevism groups, unions, fraternal or athletic groups, or [...] staff should administer the PHQ-9) 0 08/29/2024 [facility] - Occupational Stress Questionnaire Answer Date Recorded [...] any time in the past [facility], were you homeless or living in a alf (including now)? No 01/21/2024 Comments Unknown Sex and Gender Information Value Date Recorded Sex Assigned at Not on file Legal Sex Female 2:19 PM CHEMICAL BLENDER Gender Identity Female 10/25/2022 10:05 AM CDT Sexual Orientation Not on file Obstetrics History Last Filed Vital Signs Vital Sign Reading Time Taken Comments Blood Pressure 122/72 08/29/2024 2:52 PM CDT Pulse 108 08/29/2024 2:52 PM CDT Temperature 37.2 C (98.9 F) 04/15/2024 11:32 AM CHEMICAL BLENDER Respiratory Rate 18 08/29/2024 2:52 PM CDT [...] Pneumococcal vaccine <65 (1 of 1 - PPSV23, PCV20, or PCV21) 07/28/2005 11/07/2000, 01/31/2000, 1999, Additional history exists Cervical Cancer Screening 06/07/2023 06/07/2022 Regular Well Visit/Exam 18-64 05/18/2024 05/18/2023 Influenza Vaccine (#1) 2024 , 04/10/2017, 03/26/2014, Additional history exists Depression Screening [...] PANEL, ACUTE Routine 08/29/2024 3:21 PM CDT from Last 3 Months or Most Recently Relevant to Health Maintenance Results * Hepatitis panel, acute Blood (08/29/2024 3:21 PM CDT) Hep A IgM Nonreactive Nonreactive Comment: Interpretive Data: If Hep A IgM Ab is reported as Equivocal, a new sample should be drawn in two weeks for testing. Current interpretive data was last revised on 19. Testing performed by: [address] [address] Hep B core IgM Nonreactive Nonreactive C GLEN PRIETO (KATERINE) Comment: Interpretive Data If HepB Core IgM Ab is reported as Equivocal, a new sample should be drawn in two weeks for testing. Current interpretive data was last revised on 19. Testing performed by: [address] [address] Hep C Ab Nonreactive Nonreactive LEATHA PRIETO [...] last revised on 2019. Testing performed by: [address] [address] HepBsAg Nonreactive Nonreactive LEATHA PRIETO (KATERINE) Comment:Testing performed by : [address] [address] Blood 08/29/2024 3:21 PM CDT 08/29/2024 3:23 PM CDT us Zay Henry MD LAB MICROBIOLOGY - GENERAL ORDERABLES Final Result LEATHA PRIETO (KATERINE) 1 [facility] Department [place] [address] from Last 3 Months or Most Recently Relevant to Health Maintenance Insurance [employer] CHOICE OOS [employer] [facility] CHOICE OOS [employer] Care Teams Hospice Care Sales Consultant Relationship Specialty Start Date End Date Esther Rodrigues NP PCP - General Family Medicine 05/18/23
[2024-12-09] MEDS: ONDANSETRON INJ 4 MG/2 ML VIAL 8 MG IV PUSH (14:57)
[2024-12-09] MEDS: SODIUM CHLORIDE 0.9% IV 2,000 ML 999 ML IV CONT (14:57)
[2024-12-09] MEDS: KETOROLAC 30 MG/ML VIAL (*BKC) IV PUSH (14:58)
[2024-12-09] MEDS: ACETAMINOPHEN 325 MG TABLET 650 MG PO (14:59)
[2024-12-09 15:04] LABS: Hematocrit 35.7 % (35.0-49.0); Hemoglobin 12.3 g/dL (12.0-15.0); Immature Granulocyte Percent A 0.4 % (0.0-0.0); Lymphocytes Absolute Auto 0.42 K/mm3 (1.10-4.50); Mean Corpuscular HGB Conc 34.5 g/dL (32-36); Mean Corpuscular Hemoglobin 31.4 pg (27.0-31.0); Mean Corpuscular Volume 91.1 fL (78.0-102.0); Nucleated Red Blood Cells Absolute Auto 0.00 K/mm3 (0.00-0.00); Nucleated Red Blood Cells Perc 0.0 % (0-0.0); Platelet Count Result 223 K/mm3 (150-420); Red Blood Count 3.92 M/mm3 (4.20-5.40); White Blood Count 5.5 K/mm3 (4.8-10.8)
[2024-12-09 15:14] LABS: Add Urine Microscopic? YES; Appearance Urine Clear (Clear); Glucose Urine UA Negative (Negative); Leukocyte Esterase Ur Negative LEU/UL (Negative); Nitrate Urine Negative (Negative); Specific Grav Ur 1.025 (1.010-1.020)
[2024-12-09 15:15] LABS: Negative Monotest Control Negative (Negative); Positive Monotest Control Positive (Positive)
[2024-12-09 15:15] LABS: Alanine Aminotransferase 108 U/L (6-35); Albumin Level 5.1 g/dL (3.5-5.1); Alkaline Phosphatase 78 U/L (38-126); Anion Gap 13 mmol/L (4-12); Aspartate Amino Transferase 49 U/L (14-36); Bilirubin,Total 0.7 mg/dL (0.2-1.3); Blood Urea Nitrogen 6 mg/dL (7-17); Calcium 10.2 mg/dL (8.4-10.2); Carbon Dioxide 24 mmol/L (22-30); Chloride 101 mmol/L (98-107); Estimated CRCL calculation 102 ml/min; Estimated Glomerular Filt Rate > 60; Glucose 96 mg/dL (65-110); Osmolality Calculated 283 mOsm/kg (285-295); Potassium 3.7 mmol/L (3.4-5.0); Sodium 138 mmol/L (137-145); Total Protein 7.8 g/dL (6.3-8.2)
--- OUTSIDE RECORDS SUMMARY | 2024-12-09 15:26 | XMS_ITS | Encounter Summary ---
Author Organization [facility] Healthcare Address [address] [place] [address] Care Team Providers Care Ironworker Apprentice Shop Name Role Phone Esther Rodrigues NP Primary Care Provider [phone] Encounter Details Date Type Department Care Team ([facility] st Contact Info) Description 12/09/2024 Patient Self-Triage [facility] HealthCare/ Physicians [address] [place] [address] Bruce, Generic Provider [address] [place], [place] [id number] Social History Tobacco Use Types Packs/Day Years Used Date Smoking Tobacco: Every Day Vaping [facility] Utilities Answer Date Recorded In the past 12 months has [facility] electric, gas, oil, or water company [...] week 01/21/2024 How often do you attend worship or adventist serv ices? Never 01/21/2024 Do you belong to any clubs o r organizations such as worship groups, unions, fraternal or athletic groups, or [...] staff should administer the PHQ-9) 0 08/29/2024 [facility] - Occupational Stress Questionnaire Answer Date [...] any time in the past 12 m [facility], were you homeless or living in a longterm (including now)? 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
--- OUTSIDE RECORDS SUMMARY | 2024-12-09 15:26 | XMS_ITS | Clinical Summary ---
Author Organization [facility] Address [address] [place] [address] Care Team Providers Care Construction Secretary Name Role Phone Unavailable Primary Care Provider Unavailabl e Source Comments [facility],non-owned Affiliates and Associated Physician Practices is amultiple site organization consisting of ambulatory clinics and hospital sitesin [place], [place] and [place]. This disclosure is being madepursuant to the Care Everywhere program and may not contain all information available regarding this patient. Last updated 18.[facility] Allergies Active Allergy Reactions Criticality Noted Date [...] on file Legal Sex Female 11:59 AM WEB PRODUCTION MANAGER Gender Identity Not on file Sexual Orientation [...] patient's age to complete this topic Insurance [facility] ANTHEM ANTHEM
--- OUTSIDE RECORDS SUMMARY | 2024-12-09 15:26 | XMS_ITS | Clinical Summary ---
Author Organization [address] Address [address] [place] [address] Care Team Providers Care Photo Print Specialist Name Role Phone Esther Rodrigues NP Primary Care Provider [phone] Allergies No known active allergies Medications levonorgestreL [...] days Assessment & Plan (04/15/2024 11:42 AM RESEARCH STAFF MEMBER): Will trial Phentermine. Discussed medication side-effects and warning signs. Acute non-recurrent maxillary sinusitis 04/15/20 Assessment & Plan (04/15/2024 11:44 AM RESEARCH STAFF MEMBER): Will watch and wait. Advised OTC cold [...] exercise. Assessment & Plan (04/15/2024 11:30 AM RESEARCH STAFF MEMBER): Encouraged heart healthy diet and lifestyle. Advised [...] Team Description 12/09/2024 8:50 AM CDT E-Visit [facility] [address] [place] [address] Wanda Bazan NP Your Medications 12/09/2024 Patient Self-Triage [facility] [address] [place] [address] Mychart, Generic Provider 09/25/2024 [facility] [address] [place] [address] Esther Rodrigues NP from [...] uit: Not Asked; Counseling Given: Not Answered [facility] [employer] Answer Date Recorded In the past 12 months has th e [employer] gas, oil, or water company threatened to [...] week 01/21/2024 How often do you attend evangelical or adventism serv ices? Never 01/21/2024 Do you belong to any clubs o r organizations such as evangelical groups, unions, fraternal or athletic groups, or [...] staff should administer the PHQ-9) 0 08/29/2024 [facility] Questionnaire Answer [...] any time in the past 12 m [facility], were you homeless or living in a jail (including now)? No 01/21/2024 Comments Unknown Sex and Gender Information Value Date Recorded Sex Assigned at Not on file Legal Sex Female 2:19 PM RESEARCH STAFF MEMBER Gender Identity Female 10/25/2022 10:05 AM CDT Sexual Orientation Not on file Obstetrics History Last Filed Vital Signs Vital Sign Reading Time Taken Comments Blood Pressure 122/72 08/29/2024 2:52 PM CDT Pulse 108 08/29/2024 2:52 PM CDT Temperature 37.2 C (98.9 F) 04/15/2024 11:32 AM RESEARCH STAFF MEMBER Respiratory Rate 18 08/29/2024 2:52 PM CDT [...] last revised on 19. Testing performed by: [address] [address] Hep B core IgM Nonreactive Nonreactive C GLEN PRIETO (KATERINE) Comment: Interpretive Data If HepB Core IgM Ab is reported as Equivocal, a new sample should be drawn in two weeks for testing. Current interpretive data was last revised on 19. Testing performed by: [address] [id number] Hep C Ab Nonreactive Nonreactive LEATHA PRIETO [...] last revised on 2019. Testing performed by: [address] [address] HepBsAg Nonreactive Nonreactive LEATHA PRIETO (KATERINE) Comment:Testing performed by : [address] [address] Blood 08/29/2024 3:21 PM CDT 08/29/2024 3:23 PM CDT us Zay Henry MD LAB MICROBIOLOGY - GENERAL ORDERABLES Final Result LEATHA PRIETO (KATERINE) [address] [facility] Department [place] [address] from Last 3 Months or Most Recently Relevant to Health Maintenance Insurance [employer] [facility] CHOICE OOS [employer] Care Teams Photo Print Specialist Relationship Specialty Start Date End Date Esther Rodrigues NP PCP - General Family Medicine 05/18/23
[2024-12-09 15:29] LABS: Strep Group A RT-PCR NOT DETECTED (Negative)
[2024-12-09 15:41] LABS: Influenza A QL RT-PCR Negative (Negative); Influenza B QL RT-PCR Negative (Negative); RSV RNA, RT-PCR Negative (Negative); SARS-CoV-2 RNA PCR Positive (Negative)
--- NOTE | 2024-12-12 12:58 | PC.NURSE ---
Preliminary blood culture report; no growth in 24 hours.
--- NOTE | 2024-12-13 13:49 | PC.NURSE ---
preliminary blood cultures x2 reviewed. no growth in 48 hours.
--- NOTE | 2024-12-16 13:03 | PC.NURSE ---
BLOOD CULTURE FINAL RESULTS: NO GROWTH. MD SHERIF NO NEW ORDERS FOR THIS PT.
== END 2024-12-09 16:15 | disposition home or self-care (01) ==
PROVIDERS: Emergency Provider Emergency Medicine; PCP Nurse Practitioner
DX: U07.1 COVID-19 (principal); F17.290 Nicotine dependence, other tobacco product, uncomplicated
CPT/HCPCS: 36415; 71045; 80053; 81001; 85025; 86308; 87040; 87637; 87651; 93005; 96361; 96374; 96375; 99284; A9270; J1885; J2405; J7030